=== PATIENT | male | born 1960 | race American Indian/Alaskan Native ===

== ENCOUNTER 2016-10-23 19:52 | Emergency (ER) | payer OTHER ==
--- NOTE | 2016-10-24 00:44 | Emergency Department Report ---
HPI - General Chief Complaint: Back Pain/Injury Time Seen by Provider: 10/24/16 00:24 - HPI HPI: 56-year-old male presents today complaining of left-sided neck pain 2 months. Patient also complaining of neck popping with range of motion. The patient states that the pain is worse in the morning. Describes his pain as 6 out of 10 constant ache. Denies history of similar symptoms. Denies numbness, weakness, paresthesias. Denies fever, chills, nausea, vomiting, chest pain, shortness of breath, abdominal pain. Denies trying any medication for symptomatic relief. ED Past Medical Hx - Past Medical History Previous Medical History?: No - Surgical History Past Surgical History?: No - Social History Smoking Status: Current Every Day Smoker Substance Use Type: Alcohol - Medications Home Medications: Home Medications Medication Instructions Recorded Confirmed Last Taken Type Cyclobenzaprine [Flexeril] 10 mg PO TID PRN #20 tablet 10/24/16 Unknown Rx Naproxen [Naprosyn] 500 mg PO BID #30 tablet 10/24/16 Unknown Rx ED Review of Systems ROS: Stated complaint: PAIN LF SIDE OF NECK/BACK Other details as noted in HPI Constitutional: denies: chills, fever, malaise Eyes: denies: eye pain ENT: denies: ear pain, throat pain, congestion Respiratory: denies: cough, shortness of breath, wheezing Cardiovascular: denies: chest pain, palpitations Endocrine: no symptoms reported Gastrointestinal: denies: abdominal pain, nausea, vomiting Musculoskeletal: back pain Neurological: denies: headache, weakness, numbness, paresthesias Physical Exam - Physical Exam Vital Signs: Vital Signs 10/23/16 20:48 Temperature 97.7 F Pulse Rate 71 Respiratory 20 Rate Blood Pressure 120/76 O2 Sat by Pulse 100 Oximetry Physical Exam: GENERAL: The patient is well-developed and well-nourished. Patient is in NAD. HEAD: Normocephalic. Atraumatic. NECK: Full range of motion. No midline or paraspinal tenderness to palpation. BACK: Full ROM. No midline or paraspinal tenderness to palpation. Tenderness to palpation over left trapezius muscle group. No tenderness to palpation sciatic notch bilaterally. Negative straight leg raise bilaterally. CHEST/LUNGS: Clear to auscultation throughout. HEART/CARDIOVASCULAR: Regular rate and rhythm. No murmurs, rubs or gallops. ABDOMEN: Abdomen is soft, nontender. Bowel sounds normoactive. No guarding or rebound tenderness. EXTREMITIES: Full range of motion. Peripheral pulses intact. Capillary refill less than 2 seconds. NEURO: Alert and oriented x 3. Normal gait. Symmetrical strength and sensation. GCS score of 15. ED Course Vital Signs 10/23/16 20:48 Temperature 97.7 F Pulse Rate 71 Respiratory 20 Rate Blood Pressure 120/76 O2 Sat by Pulse 100 Oximetry ED Medical Decision Making - Lab Data Vital Signs 10/23/16 20:48 Temperature 97.7 F Pulse Rate 71 Respiratory 20 Rate Blood Pressure 120/76 O2 Sat by Pulse 100 Oximetry - Medical Decision Making 56-year-old male presents today with left-sided neck pain 2 months. Patient is in no acute distress at this time. He will be discharged home and is encouraged to follow up with a primary care provider. He will be sent home on Flexeril and naproxen and is encouraged to return to the emergency room for any worsening symptoms. Critical care attestation.: If time is entered above; I have spent that time in minutes in the direct care of this critically ill patient, excluding procedure time. ED Disposition Clinical Impression: Upper back strain Qualifiers: Encounter type: initial encounter Qualified Code(s): S29.012A - Strain of muscle and tendon of back wall of thorax, initial encounter Disposition: DISCHARGED TO HOME OR SELFCARE Is pt being admited?: No Does the pt Need Aspirin: No Condition: Stable Instructions: Muscle Strain (ED) Additional Instructions: Follow-up with primary care provider. Return to the emergency department if symptoms worsen. Prescriptions: Cyclobenzaprine [Flexeril] 10 mg PO TID PRN #20 tablet PRN Reason: Muscle Spasm Naproxen [Naprosyn] 500 mg PO BID #30 tablet Referrals: PRIMARY CARE, [Primary Care Provider] - 3-5 Days AUGUST GOEL MD [Staff Physician] - 3-5 Days Forms: Work/School Release Form(ED) Time of Disposition: 00:39
[2016-10-24 00:52] VITALS: BP 106/71
== END 2016-10-24 00:55 | disposition home or self-care (01) ==
LOC: ED 19:52
DX: S29.012A Strain of muscle and tendon of back wall of thorax, initial encounter (principal); F17.200 Nicotine dependence, unspecified, uncomplicated; X58.XXXA Exposure to other specified factors, initial encounter; Y93.89 Activity, other specified; Y99.8 Other external cause status; Y92.89 Other specified places as the place of occurrence of the external cause
CPT/HCPCS: 99282

== ENCOUNTER 2017-02-22 19:35 | Emergency (ER) | payer SELFPAY ==
[2017-02-22] MEDS ORDERED: MOTRIN ONE (20:09)
[2017-02-22] MEDS ORDERED: MOTRIN PO ONE (20:11)
[2017-02-22] MEDS ORDERED: NORCO 7.5/325 PO ONE (23:01)
[2017-02-22] MEDS ORDERED: DECADRON IM ONE (23:02)
--- NOTE | 2017-02-22 23:05 | Emergency Department Report ---
Upper Extremity - HPI Chief Complaint: Extremity Injury, Upper Stated Complaint: LT AND RT HAND SWELLING/PAINFUL Upper Extremity: Right Hand Occurred When: 3 Days Mechanism: Other (hx of gout) Severity: mild Symptoms: Yes Pain with Movement, Yes Limited Range of Movement, Yes Numbness, Yes Swelling, No Deformity, No Weakness, No Bruising/Ecchymosis, No Laceration or Abrasion Other History: 56 year old male presents to ED with right hand swelling x2-3 days. patient states he has history of gout but was never prescribed medication or seen by PCP. patient states he drinks 1-2 beers daily. patient is stable, neurologically intact and in no acute distress. ED Review of Systems ROS: Stated complaint: LT AND RT HAND SWELLING/PAINFUL Other details as noted in HPI Constitutional: denies: chills, fever Eyes: denies: eye pain, eye discharge, vision change ENT: denies: ear pain, throat pain Respiratory: denies: cough, shortness of breath, wheezing Cardiovascular: denies: chest pain, palpitations Endocrine: no symptoms reported Gastrointestinal: denies: abdominal pain, nausea, diarrhea Genitourinary: denies: urgency, dysuria Musculoskeletal: joint swelling (right hand), arthralgia. denies: back pain Skin: denies: rash, lesions Neurological: denies: headache, weakness, paresthesias Psychiatric: denies: anxiety, depression Hematological/Lymphatic: denies: easy bleeding, easy bruising ED Past Medical Hx - Past Medical History Previous Medical History?: No - Social History Smoking Status: Current Every Day Smoker - Medications Home Medications: Home Medications Medication Instructions Recorded Confirmed Last Taken Type Cyclobenzaprine [Flexeril] 10 mg PO TID PRN #20 tablet 10/24/16 Unknown Rx Naproxen [Naprosyn] 500 mg PO BID #30 tablet 10/24/16 Unknown Rx Indomethacin 50 mg PO BID #10 capsule 02/23/17 Unknown Rx Upper Extremity Exam - Exam General: Vital signs noted. No distress. Alert and acting appropriately. Head and Torso: No HEENT Abnormality, No Neck Tenderness, No Chest/Lungs Abnormality, No Abdominal Tenderness, No Back Tenderness Shoulder Exam: Yes Normal Range of Motion in Shoulder, No Shoulder Tenderness, No Clavicle Tenderness, No Shoulder Deformity, No AC Joint Tenderness Arm Exam: No Arm/Humerus Tenderness, No Arm Deformity Elbow: Yes Normal Range of Motion in Elbow, No Elbow Tenderness, No Elbow Deformity Forearm: No Forearm Tenderness, No Forearm Deformity, No Pain with Pronation, No Pain with Supination Wrist: Yes Normal ROM in Wrist, No Wrist Tenderness, No Wrist Deformity, No Snuffbox Tenderness, No Pain with Axial Thumb Compression Hand: Yes Hand Tenderness, Yes Normal ROM in Digit(s), No Hand Deformity, No Digit Tenderness, No Digit(s) Deformity, No Tendon Dysfunction CMS Exam: Yes Normal Distal Pulses, Yes Normal Capillary Refill, Yes Normal Distal Sensation, No Broken Skin ED Course Vital Signs 02/22/17 02/22/17 20:03 20:12 Temperature 98.4 F Pulse Rate 76 Respiratory 18 20 Rate Blood Pressure 106/72 O2 Sat by Pulse 97 Oximetry ED Medical Decision Making - Radiology Data Radiology results: report reviewed XR right hand Normal examination - Medical Decision Making 56 year old male presents to ED with right hand swelling x2-3 days. patient states he has had previous gout attacks in feet, ankles and now his hand. patient admits he drinks 1-2 beer a day. patient states he has never been prescribed medication for gout. patient will be given referral to PCP and agrees and understands to follow up within 2-3 days. Critical care attestation.: If time is entered above; I have spent that time in minutes in the direct care of this critically ill patient, excluding procedure time. ED Disposition Clinical Impression: Gout attack Qualifiers: Gout site: hand Gout etiology: unspecified cause Laterality: right Qualified Code(s): M10.9 - Gout, unspecified Disposition: - TO HOME OR SELFCARE Is pt being admited?: No Does the pt Need Aspirin: No Condition: Stable Instructions: Acute Gouty Arthritis (ED) Prescriptions: Indomethacin 50 mg PO BID #10 capsule Referrals: JAKI STEWART JR, MD [Staff Physician] - 2-3 Days RADHA ESCOTO MD [Staff Physician] - 2-3 Days GER DOZIER MD [Staff Physician] - 2-3 Days
--- NOTE | 2017-02-22 23:39 | XRay Report ---
FINAL REPORT PROCEDURE: XR HAND 3+V RT TECHNIQUE: RIGHT hand radiographs, AP, lateral, and oblique views. CPT [id number] HISTORY: right hand swelling COMPARISON: No prior studies are available for comparison. FINDINGS: Fracture (s) and/or Dislocation(s): None . Alignment: Normal . Joint space(s): Normal . Soft tissues: Normal . Bone mineralization: Normal . Foreign bodies: None . IMPRESSION: Normal Examination .
[2017-02-23 00:35] VITALS: BP 149/82
== END 2017-02-23 00:45 | disposition home or self-care (01) ==
LOC: ED 19:35
DX: M10.9 Gout, unspecified (principal); F17.210 Nicotine dependence, cigarettes, uncomplicated
CPT/HCPCS: 73130; 96372; 99283; J1100

== ENCOUNTER 2017-03-27 19:09 | Emergency (ER) | payer SELFPAY ==
--- NOTE | 2017-03-27 22:39 | Emergency Department Report ---
Upper Extremity - [facility] Chief Complaint: Extremity Injury, Upper Stated Complaint: PAIN IN RT FOOT AND RT HAND Time Seen by Provider: 03/27/17 22:39 ED Review of Systems ROS: Stated complaint: PAIN IN RT FOOT AND RT HAND Other details as noted in HPI ED Past Medical Hx - Past Medical History Additional medical history: gout - Surgical History Past Surgical History?: Yes Additional Surgical History: hernia repair - Social History Smoking Status: Current Every Day Smoker Substance Use Type: Alcohol - Medications Home Medications: Home Medications Medication Instructions Recorded Confirmed Last Taken Type Cyclobenzaprine [Flexeril] 10 mg PO TID PRN #20 tablet 10/24/16 Unknown Rx Naproxen [Naprosyn] 500 mg PO BID #30 tablet 10/24/16 Unknown Rx Indomethacin 50 mg PO BID #10 capsule 02/23/17 Unknown Rx Upper Extremity Exam - Exam General: Vital signs noted. No distress. Alert and acting appropriately. ED Course Vital Signs 03/27/17 19:20 Temperature 98.5 F Pulse Rate 79 Respiratory 18 Rate Blood Pressure 102/61 O2 Sat by Pulse 97 Oximetry Critical care attestation.: If time is entered above; I have spent that time in minutes in the direct care of this critically ill patient, excluding procedure time. ED Disposition Condition: Stable Referrals: PRIMARY CARE, [Primary Care Provider] - 3-5 Days
--- NOTE | 2017-03-27 22:52 | Emergency Department Report ---
ED Extremity Problem HPI - General Chief complaint: Extremity Injury, Upper Stated complaint: PAIN IN RT FOOT AND RT HAND Time Seen by Provider: 03/27/17 22:39 Source: patient, family Mode of arrival: Ambulatory Limitations: No Limitations - History of Present Illness Initial comments: Patient reports that he is right hand and right foot pain for 1 week. He states he has gout and has been drinking beer and eating meat and he thinks this is why he has a flare up. He has a history of gout. Pain is 8 out of 10 and achy. Denies any injury. Denies any numbness certainly into her extremities. Denies any limited range of motion to her extremities. Patient has had similar flareup of gout in the past. Denies any fever or chills. MD Complaint: extremity pain, joint swelling, joint paint Onset/Timin -: week(s) Location: right, upper extremity, lower extremity (right hand and foot) History of Same: Yes -: No myalgia, Yes arthralgia, No fever, No associated dyspnea, No associated chest pain Radiation: none Severity scale (0 -10): 8 Quality: aching, constant Consistency: constant Improves with: nothing Worsens with: palpation Associated Symptoms: arthralgias. denies: chest pain, shortness of breath, fever, myalgias, rash - Related Data Previous Rx's Medication Instructions Recorded Last Taken Type Cyclobenzaprine [Flexeril] 10 mg PO TID PRN #20 tablet 10/24/16 Unknown Rx Indomethacin 50 mg PO BID #10 capsule 02/23/17 Unknown Rx Acetaminophen/Codeine [Tylenol 1 tab PO Q6H PRN #12 tab 03/28/17 Unknown Rx /Codeine # 3 tab] Naproxen [Naprosyn TAB] 500 mg PO BID PRN #14 tablet 03/28/17 Unknown Rx methylPREDNISolone [Medrol] 4 mg PO QAM #1 tab.ds.pk 03/28/17 Unknown Rx Allergies Allergy/AdvReac Type Severity Reaction Status Date / Time No Known Allergies Allergy Verified 03/27/17 19:20 ED Review of Systems ROS: Stated complaint: PAIN IN RT FOOT AND RT HAND Other details as noted in HPI Comment: All other systems reviewed and negative Constitutional: no symptoms reported Respiratory: no symptoms reported Cardiovascular: denies: chest pain, palpitations, dyspnea on exertion, orthopnea , edema, syncope Gastrointestinal: denies: abdominal pain, nausea, vomiting Musculoskeletal: joint swelling, arthralgia. denies: back pain, myalgia Skin: denies: rash Neurological: denies: headache, weakness, numbness, paresthesias, confusion, abnormal gait, vertigo ED Past Medical Hx - Past Medical History Previous Medical History?: Yes Additional medical history: gout - Surgical History Past Surgical History?: Yes Additional Surgical History: hernia repair - Family History Family history: no significant - Social History Smoking Status: Current Every Day Smoker Substance Use Type: Alcohol Other Social History: Patient is single - Medications Home Medications: Home Medications Medication Instructions Recorded Confirmed Last Taken Type Cyclobenzaprine [Flexeril] 10 mg PO TID PRN #20 tablet 10/24/16 Unknown Rx Indomethacin 50 mg PO BID #10 capsule 02/23/17 Unknown Rx Acetaminophen/Codeine [Tylenol 1 tab PO Q6H PRN #12 tab 03/28/17 Unknown Rx /Codeine # 3 tab] Naproxen [Naprosyn TAB] 500 mg PO BID PRN #14 tablet 03/28/17 Unknown Rx methylPREDNISolone [Medrol] 4 mg PO QAM #1 tab.ds.pk 03/28/17 Unknown Rx ED Physical Exam - General Limitations: No Limitations General appearance: alert, in no apparent distress - Head Head exam: Present: atraumatic, normocephalic, normal inspection - Eye Eye exam: Present: normal appearance, PERRL, EOMI. Absent: scleral icterus, conjunctival injection, periorbital swelling, periorbital tenderness Pupils: Present: normal accommodation - ENT ENT exam: Present: normal exam, normal orophraynx, mucous membranes moist, TM's normal bilaterally, normal external ear exam - Neck Neck exam: Present: normal inspection, full ROM. Absent: tenderness, meningismus, lymphadenopathy - Respiratory Respiratory exam: Present: normal lung sounds bilaterally. Absent: respiratory distress, chest wall tenderness - Cardiovascular Cardiovascular Exam: Present: regular rate, normal rhythm, normal heart sounds. Absent: systolic murmur, diastolic murmur - GI/Abdominal GI/Abdominal exam: Present: soft, normal bowel sounds. Absent: distended, tenderness, guarding, rebound, rigid - Extremities Exam Extremities exam: Present: normal inspection, full ROM (ratio with full range of motion to lower extremity but painful with dorsiflexion and plantar flexion to right foot and flexion and extension to her right wrist area.), tenderness ( right hand and right foot), normal capillary refill, joint swelling (swelling noted to right hand. Swelling noted to right foot.), other (patient would good color, movement, sensation. Right hand and right foot with increase temperature when compared to left hand and left foot. No neurovascular compromise and pulses are 2+. Joint crepitus, effusion or deformity. No abrasion or laceration. No abnormality is nail.). Absent: pedal edema, calf tenderness - Back Exam Back exam: Present: normal inspection, full ROM. Absent: tenderness, CVA tenderness (R), CVA tenderness (L), muscle spasm, paraspinal tenderness, vertebral tenderness, rash noted - Neurological Exam Neurological exam: Present: alert, oriented X3, normal gait, reflexes normal. Absent: motor sensory deficit - Psychiatric Psychiatric exam: Present: normal affect, normal mood - Skin Skin exam: Present: warm, dry, intact, normal color. Absent: rash ED Course Vital Signs 03/27/17 03/28/17 03/28/17 19:20 00:49 00:50 Temperature 98.5 F Pulse Rate 79 Respiratory 18 18 18 Rate Blood Pressure 102/61 O2 Sat by Pulse 97 Oximetry - Reevaluation(s) Reevaluation #1: 03/28/17 01:07 Given Percocet 5/325 2 tablets, Decadron 10 mg IM and Toradol 60 mg IM in the emergency room for gout flareup. Pain is better. 03/28/17 01:07 ED Medical Decision Making - Medical Decision Making ED course: Patient with presentation of gout flareup after eating in red meat and drinking beer. He had similar flares in the past and he was here on 2016 and 02/23/2017 for similar issues. Patient states that he does not have a primary care physician. Patient educated on diagnosis and treatment plan and also foods to avoid that causes gout flareup. He said he knows what sometime he cannot help himself. He was given Percocet 5/325 2 tablets, Toradol 60 mg IM and Decadron 10 mg IM in emergency room for pain. He voiced relief of pain. She discharged home with prescription for Medrol Dosepak, naproxen and Tylenol No. 3 and instructed to follow-up at [facility] for management of chronic gout. Discharge home with his family in stable condition. Critical care attestation.: If time is entered above; I have spent that time in minutes in the direct care of this critically ill patient, excluding procedure time. ED Disposition Clinical Impression: Arthralgia of multiple sites Acute gout Qualifiers: Gout site: multiple sites Gout etiology: unspecified cause Qualified Code(s): M10.9 - Gout, unspecified Disposition: TO HOME OR SELFCARE Is pt being admited?: No Does the pt Need Aspirin: No Condition: Stable Instructions: Acute Gouty Arthritis (ED), Low Purine Diet (ED), Arthralgia (ED) Additional Instructions: Patient given discharge instruction on management of Purine diet. I instructed them to read discharge instruction on low purine Diet. I instructed him that he can take Tylenol No. 3 but he will need to avoid driving or operating heavy machinery as this medication causes drowsiness. Follow-up at [facility] in 3-5 days for follow-up visit without Prescriptions: Acetaminophen/Codeine [Tylenol /Codeine # 3 tab] 1 tab PO Q6H PRN #12 tab PRN Reason: Pain, Moderate (4-6) methylPREDNISolone [Medrol] 4 mg PO QAM #1 tab.ds.pk Naproxen [Naprosyn TAB] 500 mg PO BID PRN #14 tablet PRN Reason: Pain Referrals: [facility] [Outside] - 3-5 Days Forms: Work/School Release Form(ED)
[2017-03-28] MEDS ORDERED: DECADRON IM ONE (00:34)
[2017-03-28] MEDS ORDERED: PERCOCET 5/325 PO ONE (00:34)
[2017-03-28] MEDS ORDERED: TORADOL IM ONE (00:35)
[2017-03-28 01:31] VITALS: BP 142/87
== END 2017-03-28 01:31 | disposition home or self-care (01) ==
LOC: ED 19:09
DX: M10.9 Gout, unspecified (principal); M79.671 Pain in right foot; M79.641 Pain in right hand; F17.210 Nicotine dependence, cigarettes, uncomplicated
CPT/HCPCS: 96372; 99282; J1100; J1885

== ENCOUNTER 2017-12-04 22:15 | Emergency (ER) | payer SELFPAY ==
[2017-12-04 22:27] VITALS: BP 103/64
[2017-12-04] MEDS ORDERED: TYLENOL PO ONE (22:50)
[2017-12-04] MEDS ORDERED: TYLENOL ONE (22:52)
[2017-12-05] MEDS ORDERED: TYLENOL PO ONE (22:50)
== END 2017-12-04 22:45 | disposition left against medical advice (07) ==
LOC: ED 22:15
DX: M79.89 Other specified soft tissue disorders (principal); Z53.21 Procedure and treatment not carried out due to patient leaving prior to being seen by health care provider

== ENCOUNTER 2018-10-28 15:15 | Emergency (ER) | payer OTHER ==
--- NOTE | 2018-10-28 15:42 | Emergency Department Report ---
Blank Doc - Documentation Documentation: this is a 58-year-old male that presents with left inguinal pain area. Stated believes is a hernia. Symptoms are similar to right inguinal hernia. This initial assessment/diagnostic orders/clinical plan/treatment(s) is/are subject to change based on patient's health status, clinical progression and re- assessment by fellow clinical providers in the ED. Further treatment and workup at subsequent clinical providers discretion. Patient/guardians urged not to elope from the ED as their condition may be serious if not clinically assessed and managed. Initial orders include: 1- Patient sent to [facility] for further evaluation and treatment 2- labs
[2018-10-28 16:25] LABS: Basophils % (Auto) 0.7 % (0.0-1.8); Eosinophils # (Auto) 0.1 K/mm3 (0.0-0.4); Eosinophils % (Auto) 2.9 % (0.0-4.3); Hemoglobin 12.7 gm/dl (11.8-15.2); Lymphocytes # (Auto) 2.1 K/mm3 (1.2-5.4); Lymphocytes % (Auto) 47.2 % (13.4-35.0); Mean Corpuscular HGB Conc 33 % (32-34); Mean Corpuscular Volume 97 fl (84-94); Monocytes # (Auto) 0.3 K/mm3 (0.0-0.8); Monocytes % (Auto) 6.9 % (0.0-7.3); Platelet Count 166 K/mm3 (140-440); Red Blood Count 3.92 M/mm3 (3.65-5.03); Red Cell Distribution Width 13.5 % (13.2-15.2)
[2018-10-28 16:37] LABS: BUN/Creatinine Ratio 20; Blood Urea Nitrogen 16 mg/dL (9-20); Calcium 9.1 mg/dL (8.4-10.2); Hemolysis Index 9
--- NOTE | 2018-10-28 20:01 | Emergency Department Report ---
ED Male HPI - General Chief complaint: Urogenital-Male Stated complaint: LFT LEFT GROIN/PAIN Time Seen by Provider: 10/28/18 15:41 Source: patient Mode of arrival: Ambulatory Limitations: No Limitations - History of Present Illness MD Complaint: hernia -: This afternoon Location: left inguinal region Radiation: none Severity: mild Severity scale (0 -10): 2 Quality: aching Consistency: intermittent Worsens with: other (lifting heavy objects) lifting denies other symptoms - Related Data Previous Rx's Medication Instructions Recorded Last Taken Type Cyclobenzaprine [Flexeril] 10 mg PO TID PRN #20 tablet 10/24/16 Unknown Rx Indomethacin 50 mg PO BID #10 capsule 02/23/17 Unknown Rx Acetaminophen/Codeine [Tylenol 1 tab PO Q6H PRN #12 tab 03/28/17 Unknown Rx /Codeine # 3 tab] Naproxen [Naprosyn TAB] 500 mg PO BID PRN #14 tablet 03/28/17 Unknown Rx methylPREDNISolone [Medrol] 4 mg PO QAM #1 tab.ds.pk 03/28/17 Unknown Rx Allergies Allergy/AdvReac Type Severity Reaction Status Date / Time No Known Allergies Allergy Verified 03/27/17 19:20 ED Review of Systems ROS: Stated complaint: LFT LEFT GROIN/PAIN Other details as noted in HPI Comment: All other systems reviewed and negative ED Past Medical Hx - Past Medical History Previous Medical History?: Yes Additional medical history: gout - Surgical History Past Surgical History?: Yes Additional Surgical History: hernia repair - Social History Smoking Status: Current Every Day Smoker Substance Use Type: Alcohol - Medications Home Medications: Home Medications Medication Instructions Recorded Confirmed Last Taken Type Cyclobenzaprine [Flexeril] 10 mg PO TID PRN #20 tablet 10/24/16 Unknown Rx Indomethacin 50 mg PO BID #10 capsule 02/23/17 Unknown Rx Acetaminophen/Codeine [Tylenol 1 tab PO Q6H PRN #12 tab 03/28/17 Unknown Rx /Codeine # 3 tab] Naproxen [Naprosyn TAB] 500 mg PO BID PRN #14 tablet 03/28/17 Unknown Rx methylPREDNISolone [Medrol] 4 mg PO QAM #1 tab.ds.pk 03/28/17 Unknown Rx ED Physical Exam - General Limitations: No Limitations General appearance: alert, in no apparent distress - Head Head exam: Present: atraumatic, normocephalic - Eye Eye exam: Present: normal appearance, PERRL - ENT ENT exam: Present: mucous membranes moist - Neck Neck exam: Present: normal inspection - Respiratory Respiratory exam: Present: normal lung sounds bilaterally. Absent: respiratory distress - Cardiovascular Cardiovascular Exam: Present: regular rate, normal rhythm. Absent: systolic murmur, diastolic murmur, rubs, gallop - GI/Abdominal GI/Abdominal exam: Present: soft, normal bowel sounds - exam: Present: other (left side inguinal mass). Absent: testicular tenderness - Extremities Exam Extremities exam: Present: normal inspection, full ROM - Back Exam Back exam: Present: normal inspection - Neurological Exam Neurological exam: Present: alert, oriented X3, normal gait - Psychiatric Psychiatric exam: Present: normal affect, normal mood - Skin Skin exam: Present: warm, dry, intact, normal color. Absent: rash ED Course Vital Signs 10/28/18 15:41 Temperature 98.3 F Pulse Rate 63 Respiratory 20 Rate Blood Pressure 102/59 O2 Sat by Pulse 100 Oximetry ED Medical Decision Making - Lab Data Result diagrams: 10/28/18 16:00 10/28/18 16:00 Critical care attestation.: If time is entered above; I have spent that time in minutes in the direct care of this critically ill patient, excluding procedure time. ED Disposition Clinical Impression: Left inguinal hernia Disposition: [id number]-01 TO HOME OR SELFCARE Is pt being admited?: No Does the pt Need Aspirin: No Condition: Stable Instructions: Inguinal Hernia (ED) Additional Instructions: Take Tylenol or Motrin as needed for pain management. It's very important for you to follow up with general surgery I have listed inflammation below for your convenience. [facility] [Primary Care Provider[facility] - 3-5 Days RADHA CROWELL MD [Staff Physician] - 3-5 Days
[2018-10-28 20:19] VITALS: BP 125/79
== END 2018-10-28 20:17 | disposition home or self-care (01) ==
LOC: ED 15:15
DX: K40.90 Unilateral inguinal hernia, without obstruction or gangrene, not specified as recurrent (principal); F17.200 Nicotine dependence, unspecified, uncomplicated
CPT/HCPCS: 36415; 80048; 85025

== ENCOUNTER 2020-03-12 16:36 | Inpatient (IN) | payer SELFPAY ==
[2020-03-12 17:06] LABS: Bilirubin,Urine NEG (Negative); Blood,Urine MOD (Negative); Color,Urine Yellow (Yellow); Hyaline Casts,Urine 1 /LPF; Mucus,Urine 1+ /HPF
[2020-03-12 18:15] LABS: Basophils % (Auto) 0.3 % (0.0-1.8); Eosinophils % (Auto) 0.1 % (0.0-4.3); Hematocrit 39.4 % (35.5-45.6); Hemoglobin 12.9 gm/dl (11.8-15.2); Lymphocytes # (Auto) 0.5 K/mm3 (1.2-5.4); Lymphocytes % (Auto) 10.1 % (13.4-35.0); Mean Corpuscular HGB Conc 33 % (32-34); Mean Corpuscular Volume 104 fl (84-94); Monocytes # (Auto) 0.5 K/mm3 (0.0-0.8); Monocytes % (Auto) 9.1 % (0.0-7.3); Platelet Count 116 K/mm3 (140-440); Red Blood Count 3.79 M/mm3 (3.65-5.03); Red Cell Distribution Width 13.6 % (13.2-15.2)
[2020-03-12 18:17] LABS: Alanine Aminotransferase 70 units/L (7-56); Albumin 5.3 g/dL (3.9-5); BUN/Creatinine Ratio 11; Blood Urea Nitrogen 13 mg/dL (9-20); Calcium 10.4 mg/dL (8.4-10.2); Hemolysis Index 1
[2020-03-12] MEDS ORDERED: MORPHINE 2 MG/1 ML INJ IV ONE (20:49)
[2020-03-12] MEDS ORDERED: ONDANSETRON 4 MG/2 ML INJ IV ONE (20:49)
--- NOTE | 2020-03-12 21:14 | Emergency Department Report ---
ED N/V/D HPI - General Chief complaint: Abdominal Pain Stated complaint: COUGH,STOMACH PAIN Time Seen by Provider: 03/12/20 20:11 Source: patient Mode of arrival: Ambulatory Limitations: No Limitations - History of Present Illness Initial comments: 59-year-old male, no known past medical history, presents to ED with complaint of vomiting and diarrhea x4 days. States he is unable to keep anything down. Patient reports associated upper abdominal pain and cough. He denies any fever or chills. He denies any sick contacts or known exposure to anyone who tested positive for COVID-19. Patient reports he only drinks 2 beers daily. Also reports tobacco use as well. Patient reports unintentional weight loss of approximately 40 pounds over the last couple of months. MD complaint: nausea, vomiting, diarrhea, abdominal pain -: days(s) (4) Description of Vomiting: food contents Description of Diarrhea: water Associated Abdominal Pain: Yes Location: epigastric Radiation: none Severity: moderate Quality: aching Consistency: constant Improves with: none Worsens with: eating Associated Symptoms: cough, loss of appetite, nausea/vomiting. denies: fever/chills, headaches, shortness of breath - Related Data Previous Rx's Medication Instructions Recorded Last Taken Type Cyclobenzaprine [Flexeril] 10 mg PO TID PRN #20 tablet 10/24/16 Unknown Rx Indomethacin 50 mg PO BID #10 capsule 02/23/17 Unknown Rx Acetaminophen/Codeine [Tylenol 1 tab PO Q6H PRN #12 tab 03/28/17 Unknown Rx /Codeine # 3 tab] Naproxen [Naprosyn TAB] 500 mg PO BID PRN #14 tablet 03/28/17 Unknown Rx methylPREDNISolone [Medrol] 4 mg PO QAM #1 tab.ds.pk 03/28/17 Unknown Rx Allergies Allergy/AdvReac Type Severity Reaction Status Date / Time No Known Allergies Allergy Verified 03/27/17 19:20 ED Review of Systems ROS: Stated complaint: COUGH,STOMACH PAIN Other details as noted in HPI Comment: All other systems reviewed and negative Constitutional: denies: chills, fever Gastrointestinal: abdominal pain, nausea, vomiting, diarrhea ED Past Medical Hx - Past Medical History Previous Medical History?: Yes Additional medical history: gout. hernia - Surgical History Past Surgical History?: Yes Additional Surgical History: hernia repair - Social History Smoking Status: Current Every Day Smoker Substance Use Type: None - Medications Home Medications: Home Medications Medication Instructions Recorded Confirmed Last Taken Type Cyclobenzaprine [Flexeril] 10 mg PO TID PRN #20 tablet 10/24/16 Unknown Rx Indomethacin 50 mg PO BID #10 capsule 02/23/17 Unknown Rx Acetaminophen/Codeine [Tylenol 1 tab PO Q6H PRN #12 tab 03/28/17 Unknown Rx /Codeine # 3 tab] Naproxen [Naprosyn TAB] 500 mg PO BID PRN #14 tablet 03/28/17 Unknown Rx methylPREDNISolone [Medrol] 4 mg PO QAM #1 tab.ds.pk 03/28/17 Unknown Rx ED Physical Exam - General Limitations: No Limitations General appearance: alert, in no apparent distress - Head Head exam: Present: atraumatic, normocephalic - Eye Eye exam: Present: normal appearance, EOMI - ENT ENT exam: Present: mucous membranes moist - Neck Neck exam: Present: normal inspection - Respiratory Respiratory exam: Present: normal lung sounds bilaterally. Absent: respiratory distress - Cardiovascular Cardiovascular Exam: Present: regular rate, normal rhythm - GI/Abdominal GI/Abdominal exam: Present: soft, tenderness (epigastric, RUQ, periumbilical). Absent: distended - Extremities Exam Extremities exam: Present: normal inspection - Neurological Exam Neurological exam: Present: alert, oriented X3 - Psychiatric Psychiatric exam: Present: normal affect, normal mood - Skin Skin exam: Present: warm, dry, intact, normal color ED Course Vital Signs 03/12/20 03/12/20 03/12/20 16:41 20:06 21:19 Temperature 97.7 F 98 F Pulse Rate 94 H 86 84 Respiratory 18 20 18 Rate Blood Pressure 169/99 Blood Pressure 163/84 144/87 [Left] O2 Sat by Pulse 100 100 99 Oximetry 03/12/20 03/12/20 21:20 23:12 Temperature Pulse Rate 80 Respiratory 17 Rate Blood Pressure Blood Pressure 156/87 [Left] O2 Sat by Pulse 98 100 Oximetry ED Medical Decision Making - Lab Data Result diagrams: 03/12/20 17:30 03/12/20 17:30 - Radiology Data Radiology results: report reviewed, image reviewed - Medical Decision Making 59-year-old male with acute pancreatitis. Lipase is 994, with some mild elevation in AST and ALT. Total bilirubin is normal. WBCs are normal, patient is afebrile. CT scan shows mild peripancreatic inflammation and numerous small hypodense hepatic lesions. Patient unable to tolerate p.o. challenge here in the ED. He reports pain has improved following IV morphine. Patient has received 1 L bolus of normal saline. He will be admitted to the hospitalist, Dr. Mcmahan, for further management. - Differential Diagnosis Pancreatitis, gallstones, bowel obstruction, gastroenteritis Critical care attestation.: If time is entered above; I have spent that time in minutes in the direct care of this critically ill patient, excluding procedure time. ED Disposition Clinical Impression: Acute pancreatitis Disposition: DC-09 OP ADMIT IP TO THIS HOSP Is pt being admited?: Yes Condition: Stable Time of Disposition: 22:44
--- NOTE | 2020-03-12 21:16 | XRay Report ---
CHEST 1 VIEW 03/12/2020 8:01 PM INDICATION / CLINICAL INFORMATION: cough. Decreased appetite with nausea and vomiting. COMPARISON: None available. FINDINGS: SUPPORT DEVICES: None. HEART / MEDIASTINUM: No significant abnormality. LUNGS / PLEURA: No significant pulmonary or pleural abnormality. No pneumothorax. ADDITIONAL FINDINGS: No significant additional findings. IMPRESSION: 1. No acute findings. Signer Name: Adriana Alejandra MD Signed: 03/12/2020 9:12 PM Workstation Name: [id number]
--- NOTE | 2020-03-12 21:38 | Cat Scan Report ---
CT ABDOMEN AND PELVIS WITH CONTRAST INDICATION / CLINICAL INFORMATION: pain, vomiting. TECHNIQUE: Axial CT images were obtained through the abdomen and pelvis after 100 mL Omnipaque [address] scans at this location are performed using CT dose reduction for ALARA by means of automated exposure control. COMPARISON: None available. FINDINGS: LOWER CHEST: No significant abnormality. LIVER: Liver is enlarged and diffusely hypodense representing fatty infiltration. There are multiple small subcentimeter hypodense lesions throughout the liver which are too small to characterize. Lesio ns do not have typical appearance of simple cysts. GALLBLADDER: No significant abnormality. BILE DUCTS: No significant abnormality. PANCREAS: Mild peripancreatic inflammation extending into the left and right anterior pararenal space s. No peripancreatic fluid collection. SPLEEN: Small, benign, flash fill cavernous hemangioma. ADRENALS: No significant abnormality. RIGHT KIDNEY / URETER: No significant abnormality. LEFT KIDNEY / URETER: No significant abnormality. STOMACH / SMALL BOWEL: Mild thickening and edema of the duodenum adjacent to the head of the pancreas . No small bowel abnormality. COLON: Diverticulosis without acute inflammation. APPENDIX: No significant abnormality. PERITONEUM: Trace free fluid in the pelvis. No free air. No fluid collection. LYMPH NODES: No significant adenopathy. AORTA / ARTERIES: No significant abnormality. IVC / VEINS: No significant abnormality. URINARY BLADDER: No significant abnormality. REPRODUCTIVE ORGANS: No significant abnormality. ADDITIONAL FINDINGS: Moderate-sized left inguinal hernia containing a nonobstructed loop of sigmoid c olon. SKELETAL SYSTEM: No significant abnormality. IMPRESSION: 1. Mild peripancreatic inflammation which can be seen in acute pancreatitis. Clinical and laboratory correlation is recommended. 2. Adjacent duodenal edema and thickening are presenting either duodenitis or secondary inflammation from pancreatitis. 3. Hepatomegaly with hepatic steatosis. 4. Numerous small hypodense hepatic lesions that do not have definitive cystic appearance. Ultrasound liver may be helpful to confirm cystic versus solid nature of these lesions. 5. Moderate-sized left inguinal hernia containing nonobstructed loop of sigmoid colon. Signer Name: Adriana Alejandra MD Signed: 03/12/2020 9:34 PM Workstation Name: [id number]
[2020-03-12] MEDS ORDERED: SODIUM CHLORIDE 0.9% 1000 ML 1,000 ML IV ONE (21:56)
[2020-03-12] MEDS ORDERED: ACETAMINOPHEN 325 MG TAB PO PRN (23:32)
[2020-03-12] MEDS ORDERED: ONDANSETRON 4 MG/2 ML INJ IV PRN (23:32)
--- NOTE | 2020-03-12 23:40 | History and Physical Report ---
History of Present Illness Date of examination: 03/12/20 Date of admission: 03/12/20 22:56 Chief complaint: Nausea Vomiting Abdominal Pain History of present illness: 59-year-old male with known history of gout presenting to the emergency room today complaining of nausea vomiting and diarrhea for about 4 days. He has also been having some associated upper abdominal pain. He denies any fever or chills, no chest pain or shortness of breath, no headache or dizziness. He denies any travel and no sick contacts. He denies any contact with anyone with COVID-19. Patient admits that he drinks about 3 beers on a daily basis. He reports unintentional weight loss over the past few months. Work-up in the emergency room today reveals elevated lipase levels, CT of the abdomen and pelvis reveals acute pancreatitis. He has been started on IV fluid, Zofran and analgesic medication. Past History Past Medical History: other (Gout) Past Surgical History: hernia repair, Other (Skin Graft) Social history: smoking (Current daily Smoker), alcohol abuse (Drinks about 3 beers daily) Family history: no significant family history Medications and Allergies Allergies Allergy/AdvReac Type Severity Reaction Status Date / Time No Known Allergies Allergy Verified 03/27/17 19:20 Home Medications Medication Instructions Recorded Confirmed Last Taken Type Cyclobenzaprine [Flexeril] 10 mg PO TID PRN #20 tablet 10/24/16 Unknown Rx Indomethacin 50 mg PO BID #10 capsule 02/23/17 Unknown Rx Acetaminophen/Codeine [Tylenol 1 tab PO Q6H PRN #12 tab 03/28/17 Unknown Rx /Codeine # 3 tab] Naproxen [Naprosyn TAB] 500 mg PO BID PRN #14 tablet 03/28/17 Unknown Rx methylPREDNISolone [Medrol] 4 mg PO QAM #1 tab.ds.pk 03/28/17 Unknown Rx Active Meds: Active Medications Acetaminophen (Tylenol) 650 mg PO Q4H PRN PRN Reason: Pain MILD(1-3)/Fever >100.5/PATTERSON Enoxaparin Sodium (Enoxaparin) 40 mg SUB-Q QDAY@2200 JADEN Sodium Chloride (Nacl 0.9% 1000 Ml) 1,000 mls @ 150 mls/hr IV DIRECT JADEN Morphine Sulfate (Morphine) 2 mg IV Q4H PRN PRN Reason: Pain, Moderate (4-6) Ondansetron HCl (Zofran) 4 mg IV Q8H PRN PRN Reason: Nausea And Vomiting Sodium Chloride (Sodium Chloride Flush Syringe 10 Ml) 10 ml IV BID JADEN Sodium Chloride (Sodium Chloride Flush Syringe 10 Ml) 10 ml IV PRN PRN PRN Reason: LINE FLUSH Review of Systems Constitutional: no fever, no chills Ears, nose, mouth and throat: no nasal congestion, no sore throat Cardiovascular: no chest pain, no palpitations Respiratory: no cough, no shortness of breath Gastrointestinal: abdominal pain, nausea, vomiting, diarrhea Genitourinary Male: no dysuria, no hematuria, no flank pain Musculoskeletal: no neck pain, no low back pain Integumentary: no rash, no pruritis Neurological: no headaches, no confusion Psychiatric: no anxiety, no depression Exam - Constitutional Vitals: Temp Pulse Resp BP Pulse Ox 98 F 80 17 156/87 100 03/12/20 20:06 03/12/20 23:12 03/12/20 23:12 03/12/20 23:12 03/12/20 23:12 General appearance: Present: no acute distress, well-nourished - EENT Eyes: Present: PERRL, EOM intact. Absent: scleral icterus ENT: hearing intact, clear oral mucosa, dentition normal - Neck Neck: Present: supple, normal ROM - Respiratory Respiratory effort: normal Respiratory: bilateral: CTA - Cardiovascular Rhythm: regular Heart Sounds: Present: S1 & S2. Absent: gallop, systolic murmur, diastolic murmur, rub - Extremities Extremities: no ischemia, pulses intact, pulses symmetrical, No edema, Full ROM Peripheral Pulses: within normal limits - Abdominal General gastrointestinal: Present: soft, tender, non-distended, normal bowel sounds Localized gastrointestinal: tender: epigastric periumbilical - Integumentary Integumentary: Present: clear, warm, dry. Absent: rash - Musculoskeletal Musculoskeletal: strength equal bilaterally - Psychiatric Psychiatric: appropriate mood/affect, intact judgment & insight, memory intact, cooperative - Neurologic Neurologic: CNII-XII intact, no focal deficits, moves all extremities Results - Labs CBC & Chem 7: 03/13/20 04:48 03/13/20 04:48 Labs: Abnormal lab results 03/12/20 03/12/20 03/12/20 Range/Units 17:30 17:30 17:30 MCV 104 H (84-94) fl MCH 34 H (28-32) pg Plt Count 116 L (140-440) K/mm3 Lymph % (Auto) 10.1 L (13.4-35.0) % [place] % (Auto) 9.1 H (0.0-7.3) % Lymph # 0.5 L (1.2-5.4) K/mm3 Seg Neutrophils % 80.4 H (40.0-70.0) % Sodium 133 L (137-145) mmol/L Chloride 84.7 L (98-107) mmol/L Carbon Dioxide 14 L (22-30) mmol/L Glucose 139 H (75-100) mg/dL Calcium 10.4 H (8.4-10.2) mg/dL AST 98 H (5-40) units/L ALT 70 H (7-56) units/L Total Protein 8.7 H (6.3-8.2) g/dL Albumin 5.3 H (3.9-5) g/dL Lipase 994 H (13-60) units/L Assessment and Plan - Patient Problems (1) Acute pancreatitis Current Visit: Yes Status: Acute Plan to address problem: Patient placed on IV fluid, analgesic medication. He is meanwhile made n.p.o. Will monitor lipase levels (2) Alcohol abuse Current Visit: Yes Status: Acute Plan to address problem: Patient has been counseled on quitting alcohol abuse. We will monitor for alcohol withdrawal. (3) DVT prophylaxis Current Visit: Yes Status: Acute Plan to address problem: Patient placed on subcutaneous Lovenox (4) Full code status Current Visit: Yes Status: Acute
[2020-03-13] MEDS: SODIUM CHLORIDE 0.9% 1000 ML 1,000 ML IV SCH ×4 (00:26→21:33)
[2020-03-13] MEDS: MORPHINE 2 MG/1 ML INJ IV PRN ×5 (01:34→19:52)
[2020-03-13 06:21] LABS: Basophils % (Auto) 0.3 % (0.0-1.8); Eosinophils % (Auto) 0.6 % (0.0-4.3); Hematocrit 32.8 % (35.5-45.6); Hemoglobin 11.1 gm/dl (11.8-15.2); Lymphocytes # (Auto) 1.1 K/mm3 (1.2-5.4); Lymphocytes % (Auto) 23.5 % (13.4-35.0); Mean Corpuscular HGB Conc 34 % (32-34); Mean Corpuscular Volume 101 fl (84-94); Monocytes # (Auto) 0.5 K/mm3 (0.0-0.8); Monocytes % (Auto) 10.7 % (0.0-7.3); Red Blood Count 3.24 M/mm3 (3.65-5.03); Red Cell Distribution Width 13.1 % (13.2-15.2)
[2020-03-13 06:26] LABS: Platelet Count 88 K/mm3 (140-440)
[2020-03-13 06:34] LABS: BUN/Creatinine Ratio 16; Blood Urea Nitrogen 16 mg/dL (9-20); Calcium 9.2 mg/dL (8.4-10.2); Hemolysis Index 1; INR 0.95 (0.87-1.13)
--- NOTE | 2020-03-13 07:47 | Progress Note ---
Assessment and Plan Assessment and plan: Alcoholic pancreatitis -Patient is on bowel rest, pain control -Lipase was elevated yesterday and we are going to check today Alcohol abuse -Patient is counseled about cessation of alcohol -We will monitor if you have any withdrawal and treat accordingly Thrombocytopenia -We will monitor -ImprovING DVT prophylaxis Disposition; continue inpatient care. History Interval history: Patient was seen and evaluated this morning Patient is complaining of abdominal pain 7 out of 10 intensity Hospitalist Physical - Physical exam Narrative exam: Not in cardiopulmonary distress. The patient appeared well nourished and normally developed. Vital signs as documented. Head exam is unremarkable. No scleral icterus . Neck is without jugular venous distension, thyromegaly, or carotid bruits. Lungs are clear to auscultation. Cardiac exam reveals regular rate and Rhythm. Abdominal exam reveals mild abdominal tenderness. Extremities are nonedematous and both femoral and pedal pulses are normal. BOX CAR CHECKER: Alert and oriented 3. No focal weakness. - Constitutional Vitals: Temp Pulse Resp BP Pulse Ox 98.5 F 81 16 131/81 98 03/13/20 04:53 03/13/20 04:53 03/13/20 04:53 03/13/20 04:53 03/13/20 04:53 General appearance: Present: no acute distress, well-nourished Results - Labs CBC & Chem 7: 03/13/20 04:48 03/13/20 04:48 Labs: Laboratory Last Values WBC 4.8 K/mm3 (4.5-11.0) 03/13/20 04:48 RBC 3.24 M/mm3 (3.65-5.03) L 03/13/20 04:48 Hgb 11.1 gm/dl (11.8-15.2) L 03/13/20 04:48 Hct 32.8 % (35.5-45.6) L D 03/13/20 04:48 MCV 101 fl (84-94) H 03/13/20 04:48 MCH 34 pg (28-32) H 03/13/20 04:48 MCHC 34 % (32-34) 03/13/20 04:48 RDW 13.1 % (13.2-15.2) L 03/13/20 04:48 Plt Count 88 K/mm3 (140-440) L 03/13/20 04:48 Lymph % (Auto) 23.5 % (13.4-35.0) 03/13/20 04:48 [place] % (Auto) 10.7 % (0.0-7.3) H 03/13/20 04:48 Eos % (Auto) 0.6 % (0.0-4.3) 03/13/20 04:48 Baso % (Auto) 0.3 % (0.0-1.8) 03/13/20 04:48 Lymph # 1.1 K/mm3 (1.2-5.4) L 03/13/20 04:48 [place] # 0.5 K/mm3 (0.0-0.8) 03/13/20 04:48 Eos # 0.0 K/mm3 (0.0-0.4) 03/13/20 04:48 Baso # 0.0 K/mm3 (0.0-0.1) 03/13/20 04:48 Seg Neutrophils % 64.9 % (40.0-70.0) 03/13/20 04:48 Seg Neutrophils # 3.1 K/mm3 (1.8-7.7) 03/13/20 04:48 PT 12.9 Sec. (12.2-14.9) 03/13/20 04:48 INR 0.95 (0.87-1.13) 03/13/20 04:48 Sodium 134 mmol/L (137-145) L 03/13/20 04:48 Potassium 4.2 mmol/L (3.6-5.0) 03/13/20 04:48 Chloride 93.7 mmol/L (98-107) L 03/13/20 04:48 Carbon Dioxide 18 mmol/L (22-30) L 03/13/20 04:48 Anion Gap 27 mmol/L 03/13/20 04:48 BUN 16 mg/dL (9-20) 03/13/20 04:48 Creatinine 1.0 mg/dL (0.8-1.3) 03/13/20 04:48 Estimated GFR > 60 ml/min 03/13/20 04:48 BUN/Creatinine Ratio 16 % 03/13/20 04:48 Glucose 102 mg/dL (75-100) H 03/13/20 04:48 Calcium 9.2 mg/dL (8.4-10.2) 03/13/20 04:48 Total Bilirubin 0.90 mg/dL (0.1-1.2) 03/12/20 17:30 AST 98 units/L (5-40) H 03/12/20 17:30 ALT 70 units/L (7-56) H 03/12/20 17:30 Alkaline Phosphatase 76 units/L (35-129) 03/12/20 17:30 Total Protein 8.7 g/dL (6.3-8.2) H 03/12/20 17:30 Albumin 5.3 g/dL (3.9-5) H 03/12/20 17:30 Albumin/Globulin Ratio 1.6 % 03/12/20 17:30 Lipase 994 units/L (13-60) H 03/12/20 17:30 Urine Color Yellow (Yellow) 03/12/20 Unknown Urine Turbidity Clear (Clear) 03/12/20 Unknown Urine pH 5.0 (5.0-7.0) 03/12/20 Unknown Ur Specific [place] 1.019 (1.003-1.030) 03/12/20 Unknown Urine Protein 100 mg/dl mg/dL (Negative) 03/12/20 Unknown Urine Glucose (UA) Neg mg/dL (Negative) 03/12/20 Unknown Urine Ketones 80 mg/dL (Negative) 03/12/20 Unknown Urine Blood Mod (Negative) 03/12/20 Unknown Urine Nitrite Neg (Negative) 03/12/20 Unknown Urine Bilirubin Neg (Negative) 03/12/20 Unknown Urine Urobilinogen 2.0 mg/dL (<2.0) 03/12/20 Unknown Ur Leukocyte Esterase Neg (Negative) 03/12/20 Unknown Urine WBC (Auto) 4.0 /HPF (0.0-6.0) 03/12/20 Unknown Urine RBC (Auto) 2.0 /HPF (0.0-6.0) 03/12/20 Unknown U Epithel Cells (Auto) 1.0 /HPF (0-13.0) 03/12/20 Unknown Hyaline Casts 1 /LPF 03/12/20 Unknown Urine Mucus 1+ /HPF 03/12/20 Unknown [place]/IV: Voiding Method Toilet IV Catheter Type [Left Wrist] INT / Saline Lock Active Medications - Current Medications Current Medications: Generic Name Dose Route Start Last Admin Trade Name Freq PRN Reason Stop Dose Admin Acetaminophen 650 mg 03/12/20 23:32 Tylenol PO Q4H PRN Pain MILD(1-3)/Fever >100.5/PATTERSON Enoxaparin Sodium 40 mg 03/13/20 22:00 Enoxaparin SUB-Q QDAY@2200 JADEN Sodium Chloride 1,000 mls @ 150 mls/hr 03/12/20 23:45 03/13/20 00:26 Nacl 0.9% 1000 Ml IV 150 mls/hr DIRECT JADEN Administration Morphine Sulfate 2 mg 03/12/20 23:32 03/13/20 05:31 Morphine IV 2 mg Q4H PRN Administration Pain, Moderate (4-6) Ondansetron HCl 4 mg 03/12/20 23:32 Zofran IV Q8H PRN Nausea And Vomiting Sodium Chloride 10 ml 03/13/20 10:00 Sodium Chloride Flush Syringe 10 Ml IV BID JADEN Sodium Chloride 10 ml 03/12/20 23:32 03/13/20 00:25 Sodium Chloride Flush Syringe 10 Ml IV 10 ml PRN PRN Administration LINE FLUSH
[2020-03-13] MEDS ORDERED: ENOXAPARIN 40 MG/0.4 ML INJ SUB-Q SCH (22:00)
[2020-03-14] MEDS: MORPHINE 2 MG/1 ML INJ IV PRN ×2 (00:51→05:11)
[2020-03-14] MEDS: SODIUM CHLORIDE 0.9% 1000 ML 1,000 ML IV SCH (05:11)
--- NOTE | 2020-03-14 09:49 | Discharge Summary ---
Providers - Providers Date of Admission: 03/13/20 09:49 Date of discharge: 03/14/20 Attending physician: SHAUNA HUDSON MD Primary care physician: REDEYE GUNNER Hospitalization Reason for admission: acute alcoholic pancreatitis Condition: Stable Pertinent studies: CT abdomen and pelvis Hospital course: 59-year-old male with known history of gout presenting to the emergency room today complaining of nausea vomiting and diarrhea for about 4 days. He has also been having some associated upper abdominal pain. He denies any fever or chills, no chest pain or shortness of breath, no headache or dizziness. He denies any travel and no sick contacts. He denies any contact with anyone with COVID-19. Patient admits that he drinks about 3 beers on a daily basis. He reports unintentional weight loss over the past few months. Work-up in the emergency room today reveals elevated lipase levels, CT of the abdomen and pelvis reveals acute pancreatitis. He has been started on IV fluid, Zofran and analgesic medication. Patient was admitted to the floor for the management of acute alcoholic pancreatitis, patient was n.p.o., was given IV fluids and pain control. Patient symptoms are getting better. Lipase level is trending down. Patient tolerated full liquid diet without any problem. Patient counseled extensively about cessation of alcohol. Patient discharged home in a stable condition. Advised to have follow-up with his primary care physician. Disposition: DC-01 TO HOME OR SELFCARE Time spent for discharge: 31 minutes - Discharge Diagnoses (1) Acute pancreatitis Status: Acute (2) Alcohol abuse Status: Chronic Core Measure Documentation - Palliative Care Palliative Care/ Comfort Measures: Not Applicable - Core Measures Any of the following diagnoses?: none Exam - Physical Exam Narrative exam: Not in cardiopulmonary distress. The patient appeared well nourished and normally developed. Vital signs as documented. Head exam is unremarkable. No scleral icterus . Neck is without jugular venous distension, thyromegaly, or carotid bruits. Lungs are clear to auscultation. Cardiac exam reveals regular rate and Rhythm. Abdominal exam reveals no abdominal tenderness. Extremities are nonedematous and both femoral and pedal pulses are normal. DIRECTOR OF CREATIVE SERVICES: Alert and oriented 3. No focal weakness. - Constitutional Vitals: Temp Pulse Resp BP Pulse Ox 98.4 F 67 16 128/83 99 03/14/20 04:23 03/14/20 04:23 03/14/20 04:23 03/14/20 04:23 03/14/20 04:23 Plan Activity: no restrictions Weight Bearing Status: Full Weight Bearing Diet: advance as tolerated Follow up with: PRIMARY CARE, [Primary Care Provider] - 3-5 Days Forms: Work/School Release Form Prescriptions: oxyCODONE /ACETAMINOPHEN [Percocet 5/325] 1 tab PO Q6HR PRN #12 tablet PRN Reason: Pain
[2020-03-14 10:57] LABS: Blood Urea Nitrogen 7 mg/dL (9-20); Calcium 8.9 mg/dL (8.4-10.2); Hemolysis Index 7
[2020-03-14 10:58] VITALS: BP 130/77
[2020-03-14 10:58] LABS: BUN/Creatinine Ratio 10
[2020-03-14] MEDS ORDERED: POTASSIUM CHLORIDE ER 20 MEQ TAB PO ONE (13:00)
== END 2020-03-14 11:30 | disposition home or self-care (01) | DRG 440 ==
LOC: ED 16:36 → 3A 22:56 → OBSVTOIN 03-13 09:49
PROVIDERS: ADMIT Internal Medicine Geriatric Medicine; ATTEND Internal Medicine
DX: K85.90 Acute pancreatitis without necrosis or infection, unspecified (principal); F17.210 Nicotine dependence, cigarettes, uncomplicated; M10.9 Gout, unspecified; F10.10 Alcohol abuse, uncomplicated; Y90.9 Presence of alcohol in blood, level not specified; K85.20 Alcohol induced acute pancreatitis without necrosis or infection; D69.6 Thrombocytopenia, unspecified; Z71.6 Tobacco abuse counseling
CPT/HCPCS: 36415; 71045; 74177; 80048; 80053; 81001; 83690; 85025; 85610; 96365; 96372; 96375; 99406; G0378; J1650; J2270; J2405; J7030; Q9967

== ENCOUNTER 2020-07-25 15:36 | Emergency (ER) | payer SELFPAY ==
[2020-07-25 15:43] VITALS: BP 125/72
--- NOTE | 2020-07-25 15:53 | Emergency Department Report ---
Blank Doc - Documentation Documentation: This is a 60-year-old male that presents with abdominal pain with nausea. 1- This initial assessment/diagnostic orders/clinical plan/ treatment(s) is/are subject to change based on pt's health status, clinical progression and re- assessment by fellow clinical providers in the ED. Further treatment and workup at subsequent clinical provers discretion. Patient/guardians urged not to elope from ED as their condition may be serious if not clinically assessed and managed. 2-labs 3-UA
[2020-07-25 16:02] LABS: Basophils % (Auto) 0.5 % (0.0-1.8); Eosinophils % (Auto) 0.7 % (0.0-4.3); Hematocrit 35.6 % (35.5-45.6); Hemoglobin 11.9 gm/dl (11.8-15.2); Lymphocytes # (Auto) 2.1 K/mm3 (1.2-5.4); Lymphocytes % (Auto) 50.2 % (13.4-35.0); Mean Corpuscular HGB Conc 34 % (32-34); Mean Corpuscular Volume 100 fl (84-94); Monocytes # (Auto) 0.3 K/mm3 (0.0-0.8); Monocytes % (Auto) 6.7 % (0.0-7.3); Red Blood Count 3.55 M/mm3 (3.65-5.03); Red Cell Distribution Width 13.6 % (13.2-15.2)
[2020-07-25 16:07] LABS: Platelet Count 86 K/mm3 (140-440)
[2020-07-25 16:23] LABS: Alanine Aminotransferase 78 units/L (7-56); Albumin 3.9 g/dL (3.9-5); BUN/Creatinine Ratio 19; Blood Urea Nitrogen 15 mg/dL (9-20); Calcium 8.6 mg/dL (8.4-10.2); Hemolysis Index 6
== END 2020-07-25 16:00 | disposition left against medical advice (07) ==
LOC: ED 15:36
DX: R10.9 Unspecified abdominal pain (principal); Z53.21 Procedure and treatment not carried out due to patient leaving prior to being seen by health care provider
CPT/HCPCS: 36415; 80053; 83690; 85025

== ENCOUNTER 2020-08-30 19:10 | Emergency (ER) | payer SELFPAY ==
--- NOTE | 2020-08-30 20:01 | Event Note ---
ED Screening Note ED Screening Note: Patient is a history of pancreatitis Presents for epigastric abdominal pain and nausea and vomiting that began a month ago but worsened in the last few days He is still a current everyday drinker, he drinks 3 (20 ounce beers) a day This initial assessment/diagnostic orders/clinical plan/treatment(s) is/are subject to change based on patients health status, clinical progression and re- assessment by fellow clinical providers in the ED. Further treatment and workup at subsequent clinical providers discretion. Patient/guardian urged not to elope from the ED as their condition may be serious if not clinically assessed and managed. Initial orders include: labs, ct
[2020-08-30 20:38] LABS: Basophils % (Auto) 0.5 % (0.0-1.8); Eosinophils % (Auto) 1.1 % (0.0-4.3); Hematocrit 27.4 % (35.5-45.6); Hemoglobin 9.3 gm/dl (11.8-15.2); Lymphocytes % (Auto) 47.8 % (13.4-35.0); Mean Corpuscular HGB Conc 34 % (32-34); Mean Corpuscular Volume 103 fl (84-94); Monocytes # (Auto) 0.5 K/mm3 (0.0-0.8); Monocytes % (Auto) 12.6 % (0.0-7.3); Platelet Count 115 K/mm3 (140-440); Red Blood Count 2.67 M/mm3 (3.65-5.03); Red Cell Distribution Width 15.1 % (13.2-15.2)
[2020-08-30 20:54] LABS: Alanine Aminotransferase 95 units/L (7-56); Albumin 3.2 g/dL (3.9-5); BUN/Creatinine Ratio 12; Blood Urea Nitrogen 12 mg/dL (9-20); Calcium 8.6 mg/dL (8.4-10.2); Hemolysis Index 4
--- NOTE | 2020-08-30 23:01 | Cat Scan Report ---
CT ABDOMEN AND PELVIS WITH CONTRAST INDICATION / CLINICAL INFORMATION: Patient complains of epigastric abd pain, N/V, Hx of Pancreatitis. TECHNIQUE: Axial CT images were obtained through the abdomen and pelvis after IV contrast. All CT sc ans at this location are performed using CT dose reduction for ALARA by means of automated exposure c ontrol. COMPARISON: CT dated 03/12/2020. FINDINGS: LOWER CHEST: Focal airspace opacity within the left lower lobe. Minimal tree-in-bud opacities are als o present in the partially imaged right middle lobe. LIVER: There is hepatomegaly with hepatic steatosis. Innumerable subcentimeter hypodense lesions are again seen throughout the liver, unchanged from prior study. GALLBLADDER/BILIARY TREE: Cholelithiasis. No CT evidence of cholecystitis. PANCREAS: No significant abnormality SPLEEN: Stable focal area of hyperenhancement within the spleen, likely reflects hemangioma. ADRENALS: No significant abnormality KIDNEYS / URETER: No significant abnormality URINARY BLADDER: No significant abnormality REPRODUCTIVE ORGANS: No significant abnormality STOMACH / SMALL BOWEL: There is inflammatory stranding and mural thickening about the second portion of the duodenum. 8 mm focal cystic structure noted along the medial aspect of the duodenum (series 5 image 50). No evidence of small bowel obstruction. COLON: The colon is decompressed, which limits evaluation. There is scattered colonic diverticulosis without CT evidence of diverticulitis. Appendix is normal. LYMPH NODES: No significant adenopathy. VASCULATURE: No significant abnormality. OTHER: No free air, free fluid, or focal fluid collection is identified. Left inguinal hernia contain s loop of nonobstructed distal colon. SKELETAL SYSTEM: Scattered degenerate changes of the spine. No acute process. IMPRESSION: 1. Inflammatory stranding and small suspected ulceration involving the second portion of the duodenum , compatible with peptic ulcer disease. No evidence of perforation at this time. 2. Mild tree-in-bud and airspace opacities within the lung bases, may reflect atypical infectious or inflammatory process. 3. Stable innumerable hypodense hepatic lesions. These are favored to be benign and may reflect bilia ry hamartomas. Continued follow-up is recommended. 4. Other findings as above. Signer Name: Gibran Graham MD Signed: 08/30/2020 10:57 PM Workstation Name: [id number]
[2020-08-30] MEDS ORDERED: ONDANSETRON 4 MG/2 ML INJ IV ONE (23:05)
[2020-08-30] MEDS ORDERED: FAMOTIDINE 20 MG/2 ML INJ IV ONE (23:05)
[2020-08-30] MEDS ORDERED: SODIUM CHLORIDE 0.9% 1000 ML 1,000 ML IV ONE (23:05)
--- NOTE | 2020-08-30 23:10 | Emergency Department Report ---
HPI <LEORA ELDRIDGE III - Last Filed: 08/31/20 05:58> - HPI HPI: This is a 60-year-old -[place] male presents to the emergency department with a complaint of abdominal pain, left groin pain, nausea and vomiting. Overall this has been going on for the past 1 to 2 months but worsened over the past week. The patient was here about 1 month ago and says he was diagnosed with pancreatitis at that time. He was told that he has to quit drinking alcohol but "I have not stopped yet", and the patient admits to daily beer drinking. The patient also says that he has a history of a left inguinal hernia and says "it keeps popping out." He has not taken anything for symptoms prior to presentation. He denies any fever, back pain, lower extremity swelling, chest pain, shortness of breath. He does admit to some diarrhea. No recent travel or sick contacts at home. He does not have a primary care physician. <EDU TREVINO - Last Filed: 09/02/20 06:01> - General Chief Complaint: Abdominal Pain Time Seen by Provider: 08/30/20 20:00 ED Past Medical Hx <LEORA ELDRIDGE III - Last Filed: 08/31/20 05:58> - Past Medical History Previous Medical History?: Yes Additional medical history: gout. hernia. PANCREATITIS - Surgical History Past Surgical History?: Yes Additional Surgical History: hernia repair - Social History Smoking Status: Current Every Day Smoker Substance Use Type: Alcohol <EDU TREVINO - Last Filed: 09/02/20 06:01> - Medications Home Medications: Home Medications Medication Instructions Recorded Confirmed Last Taken Type Cyclobenzaprine [Flexeril] 10 mg PO TID PRN #20 tablet 10/24/16 03/13/20 Unknown Rx Indomethacin 50 mg PO BID #10 capsule 02/23/17 03/13/20 Unknown Rx Naproxen [Naprosyn TAB] 500 mg PO BID PRN #14 tablet 03/28/17 03/13/20 Unknown Rx oxyCODONE /ACETAMINOPHEN [Percocet 1 tab PO Q6HR PRN #12 tablet 03/14/20 Unknown Rx 5/325] Omeprazole 40 mg PO QDAY #30 capsule. 08/31/20 Unknown Rx ED Review of Systems ROS: Stated complaint: ABD PAIN Other details as noted in HPI <LEORA ELDRIDGE III - Last Filed: 08/31/20 05:58> ROS: Stated complaint: ABD PAIN Other details as noted in HPI Comment: All other systems reviewed and negative Constitutional: denies: chills, fever Eyes: denies: eye pain, vision change ENT: denies: ear pain, throat pain Respiratory: denies: cough, shortness of breath Cardiovascular: denies: chest pain, palpitations Gastrointestinal: abdominal pain, nausea, vomiting Genitourinary: denies: dysuria, discharge, testicular pain Musculoskeletal: denies: back pain, arthralgia Skin: denies: rash, lesions Neurological: denies: headache, weakness <EDU TREVINO - Last Filed: 09/02/20 06:01> Physical Exam - Physical Exam Vital Signs: Vital Signs 08/30/20 08/31/20 08/31/20 19:59 00:18 00:30 Temperature 98.1 F Pulse Rate 86 79 73 Respiratory 18 20 Rate Blood Pressure 131/73 136/106 O2 Sat by Pulse 100 99 98 Oximetry 08/31/20 08/31/20 08/31/20 00:45 01:00 01:16 Temperature Pulse Rate 78 78 Respiratory 10 L 13 Rate Blood Pressure 131/83 131/83 127/78 O2 Sat by Pulse 100 100 100 Oximetry 08/31/20 08/31/20 08/31/20 01:30 01:46 02:00 Temperature Pulse Rate 76 72 78 Respiratory 22 17 19 Rate Blood Pressure 127/78 126/77 126/77 O2 Sat by Pulse 99 100 98 Oximetry 08/31/20 08/31/20 08/31/20 02:16 02:30 02:46 Temperature Pulse Rate 78 82 92 H Respiratory 15 16 20 Rate Blood Pressure 113/68 113/68 120/74 O2 Sat by Pulse 100 98 98 Oximetry 08/31/20 08/31/20 08/31/20 03:00 03:16 03:30 Temperature Pulse Rate 85 82 82 Respiratory 11 L 9 L 10 L Rate Blood Pressure 120/74 92/40 127/78 O2 Sat by Pulse 93 93 92 Oximetry 08/31/20 08/31/20 08/31/20 03:46 04:00 04:16 Temperature Pulse Rate 83 85 82 Respiratory 10 L 12 9 L Rate Blood Pressure 104/51 104/51 99/57 O2 Sat by Pulse 89 97 93 Oximetry 08/31/20 08/31/20 08/31/20 04:30 04:46 05:00 Temperature Pulse Rate 78 80 78 Respiratory 10 L 9 L 8 L Rate Blood Pressure 99/57 102/46 102/46 O2 Sat by Pulse 94 89 90 Oximetry 08/31/20 08/31/20 05:16 05:30 Temperature Pulse Rate 81 76 Respiratory 8 L 9 L Rate Blood Pressure 101/47 101/47 O2 Sat by Pulse 96 94 Oximetry <LEORA ELDRIDGE III K - Last Filed: 08/31/20 05:58> - Physical Exam Vital Signs: Vital Signs 08/30/20 19:59 Temperature 98.1 F Pulse Rate 86 Respiratory 18 Rate Blood Pressure 131/73 O2 Sat by Pulse 100 Oximetry Physical Exam: GENERAL: The patient is well-developed well-nourished. HENT: Normocephalic. Atraumatic. Patient has moist mucous membranes. EYES: Extraocular motions are intact. NECK: Supple. Trachea is midline. CHEST/LUNGS: Clear to auscultation. There is no respiratory distress noted. HEART/CARDIOVASCULAR: Regular. There is no tachycardia. There is no murmur. ABDOMEN: Abdomen is soft. Mild upper abdominal tenderness to palpation. No guarding. No peritoneal signs with heel strike. Patient has normal bowel sounds. There is no abdominal distention. SKIN: Skin is warm and dry. NEURO: The patient is awake, alert, and oriented. The patient is cooperative. The patient has no focal neurologic deficits. Normal speech. MUSCULOSKELETAL: There is no tenderness or deformity. There is no limitation range of motion. There is no evidence of acute injury. : There is a reducible left inguinal hernia. <EDU TREVINO S - Last Filed: 09/02/20 06:01> ED Course Vital Signs 08/30/20 08/31/20 08/31/20 19:59 00:18 00:30 Temperature 98.1 F Pulse Rate 86 79 73 Respiratory 18 20 Rate Blood Pressure 131/73 136/106 O2 Sat by Pulse 100 99 98 Oximetry 08/31/20 08/31/20 08/31/20 00:45 01:00 01:16 Temperature Pulse Rate 78 78 Respiratory 10 L 13 Rate Blood Pressure 131/83 131/83 127/78 O2 Sat by Pulse 100 100 100 Oximetry 08/31/20 08/31/20 08/31/20 01:30 01:46 02:00 Temperature Pulse Rate 76 72 78 Respiratory 22 17 19 Rate Blood Pressure 127/78 126/77 126/77 O2 Sat by Pulse 99 100 98 Oximetry 08/31/20 08/31/20 08/31/20 02:16 02:30 02:46 Temperature Pulse Rate 78 82 92 H Respiratory 15 16 20 Rate Blood Pressure 113/68 113/68 120/74 O2 Sat by Pulse 100 98 98 Oximetry 08/31/20 08/31/20 08/31/20 03:00 03:16 03:30 Temperature Pulse Rate 85 82 82 Respiratory 11 L 9 L 10 L Rate Blood Pressure 120/74 92/40 127/78 O2 Sat by Pulse 93 93 92 Oximetry 08/31/20 08/31/20 08/31/20 03:46 04:00 04:16 Temperature Pulse Rate 83 85 82 Respiratory 10 L 12 9 L Rate Blood Pressure 104/51 104/51 99/57 O2 Sat by Pulse 89 97 93 Oximetry 08/31/20 08/31/20 08/31/20 04:30 04:46 05:00 Temperature Pulse Rate 78 80 78 Respiratory 10 L 9 L 8 L Rate Blood Pressure 99/57 102/46 102/46 O2 Sat by Pulse 94 89 90 Oximetry 08/31/20 08/31/20 05:16 05:30 Temperature Pulse Rate 81 76 Respiratory 8 L 9 L Rate Blood Pressure 101/47 101/47 O2 Sat by Pulse 96 94 Oximetry - Reevaluation(s) Reevaluation #1: Patient is alert and oriented x3. Patient answering questions appropriately. Patient ambulatory in the ER. Patient is clinically sober at this time. Patient is stable to be discharged. We will activate the previous establish discharge. I discussed all results and clinical findings with patient. I discussed plan of care with patient. Patient agrees with plan of care. Patient is stable for discharge. Patient will be discharged home. Patient given discharge instructions. Patient voiced understanding of discharge instructions. 08/31/20 05:58 <LEORA ELDRIDGE III - Last Filed: 08/31/20 05:58> Vital Signs 08/30/20 19:59 Temperature 98.1 F Pulse Rate 86 Respiratory 18 Rate Blood Pressure 131/73 O2 Sat by Pulse 100 Oximetry <BELINDAEDU - Last Filed: 09/02/20 06:01> ED Medical Decision Making - Lab Data Result diagrams: 08/30/20 20:08 08/30/20 20:08 <LEORA ELDRIDGE III - Last Filed: 08/31/20 05:58> - Lab Data Result diagrams: 08/30/20 20:08 08/30/20 20:08 Lab Results 08/30/20 08/30/20 08/30/20 Range/Units 20:08 20:08 23:16 WBC 4.2 L (4.5-11.0) K/mm3 RBC 2.67 L (3.65-5.03) M/mm3 Hgb 9.3 L (11.8-15.2) gm/dl Hct 27.4 L (35.5-45.6) % MCV 103 H (84-94) fl MCH 35 H (28-32) pg MCHC 34 (32-34) % RDW 15.1 (13.2-15.2) % Plt Count 115 L (140-440) K/mm3 Lymph % (Auto) 47.8 H (13.4-35.0) % [place] % (Auto) 12.6 H (0.0-7.3) % Eos % (Auto) 1.1 (0.0-4.3) % Baso % (Auto) 0.5 (0.0-1.8) % Lymph # (Auto) 2.0 (1.2-5.4) K/mm3 [place] # (Auto) 0.5 (0.0-0.8) K/mm3 Eos # (Auto) 0.0 (0.0-0.4) K/mm3 Baso # (Auto) 0.0 (0.0-0.1) K/mm3 Seg Neutrophils % 38.0 L (40.0-70.0) % Seg Neutrophils # 1.6 L (1.8-7.7) K/mm3 Sodium 137 (137-145) mmol/L Potassium 3.6 (3.6-5.0) mmol/L Chloride 96.6 L (98-107) mmol/L Carbon Dioxide 28 (22-30) mmol/L Anion Gap 16 mmol/L BUN 12 (9-20) mg/dL Creatinine 1.0 (0.8-1.3) mg/dL Estimated GFR > 60 ml/min BUN/Creatinine Ratio 12 % Glucose 180 H (75-100) mg/dL Calcium 8.6 (8.4-10.2) mg/dL Total Bilirubin 0.60 (0.1-1.2) mg/dL AST 156 H (5-40) units/L ALT 95 H (7-56) units/L Alkaline Phosphatase 152 H (35-129) units/L Total Protein 5.9 L (6.3-8.2) g/dL Albumin 3.2 L (3.9-5) g/dL Albumin/Globulin Ratio 1.2 % Lipase 24 (13-60) units/L Plasma/Serum Alcohol 0.27 H (0-0.07) % - Radiology Data Radiology results: report reviewed CT ABDOMEN AND PELVIS WITH CONTRAST INDICATION / CLINICAL INFORMATION: Patient complains of epigastric abd pain, N/V, Hx of Pancreatitis. TECHNIQUE: Axial CT images were obtained through the abdomen and pelvis after IV contrast. All CT scans at this location are performed using CT dose reduction for ALARA by means of automated exposure control. COMPARISON: CT dated 03/12/2020. FINDINGS: LOWER CHEST: Focal airspace opacity within the left lower lobe. Minimal tree-in-bud opacities are also present in the partially imaged right middle lobe. LIVER: There is hepatomegaly with hepatic steatosis. Innumerable subcentimeter hypodense lesions are again seen throughout the liver, unchanged from prior stud y. GALLBLADDER/BILIARY TREE: Cholelithiasis. No CT evidence of cholecystitis. PANCREAS: No significant abnormality SPLEEN: Stable focal area of hyperenhancement within the spleen, likely reflects hemangioma. ADRENALS: No significant abnormality KIDNEYS / URETER: No significant abnormality URINARY BL ADDER: No significant abnormality REPRODUCTIVE ORGANS: No significant abnormality STOMACH / SMALL BOWEL: There is inflammatory stranding and mural thickening about the second portion of the duodenum. 8 mm focal cystic structure noted along the medial aspect of the duodenum (series 5 image 50). No evidence of small bowel obstruction. COLON: The colon is decompressed, which limits evaluation. There is scattered colonic diverticulosis without CT evidence of diverticulitis. Appendix is normal. LYMPH NODES: No significant adenopathy. VASCULATURE: No significant abnormality. OTHER: No free air, free fluid, or focal fluid collection is identified. Left inguinal hernia contains loop of nonobstructed distal colon. SKELETAL SYSTEM: Scattered degenerate changes of the spine. No acute process. IMPRESSION: 1. Inflammatory stranding and small suspected ulceration involving the second portion of the duodenum, compatible with peptic ulcer disease. No evidence of perforation at this time. 2. Mild tr ee-in-bud and airspace opacities within the lung bases, may reflect atypical infectious or inflammatory process. 3. Stable innumerable hypodense hepatic lesions. These are favored to be benign and may reflect biliary hamartomas. Continued follow-up is recommended. 4. Other findings as above. - Medical Decision Making This patient presents to the emergency department with a complaint of upper abdominal pain, left groin pain, diarrhea, and some occasional nausea with vom iting. The patient says that he has a history of pancreatitis and has been told in the past that he has to stop drinking but the patient is still drinking daily. His blood alcohol level came back at 0.27 that was drawn around 11 PM this evening. Patient has some anemia with hemoglobin of about 9, but this does not require any transfusion. The patient also has elevation in his LFTs consistent with his history of alcohol use/abuse. The patient does have a history of a hernia. He currently has a left direct inguinal hernia that is easily reducible. Patient has some reproducible abdominal epigastric tenderness to palpation. Otherwise, the abdomen is soft, nondistended and nontoxic in appearance. CT scan of the abdomen and pelvis with IV contrast shows some inflammatory changes and mural thickness to the duodenum consistent with peptic ulcer disease without any signs of perforation. Patient has cholelithiasis without cholecystitis. There are some areas of diverticulosis without diverticulitis. The patient has some cystic areas of the liver that radiology feels is most likely benign, but does require further outpatient evaluation. The left inguinal hernia is visible but there are no signs of strangulation or incarceration. Patient is seen resting comfortably multiple times. Despite his alcohol intoxication he is easily arousable and is alert and oriented. The patient has been given Pepcid, IV fluid resuscitation and a banana bag. A PPI will be added. The patient says that there is nobody who can come and take responsibility for him this evening. He will continue to receive IV fluid and will rest in the emergency department until morning, when he says that there is a family member who can come to get him. When discharge, the patient will be given outpatient referrals for primary care, gastroenterology and general surgery. He will be placed on a PPI. We have had discussions about cessation of alcohol consumption, dietary and lifestyle changes to make. This case will be signed out to my colleague, Dr. Muñiz, to follow the patient's alcohol level and make sure that he is either sober enough for discharge home, or that a family member or friend can, and take responsibility for him and get him home safely. <EDU TREVINO - Last Filed: 09/02/20 06:01> Critical care attestation.: If time is entered above; I have spent that time in minutes in the direct care of this critically ill patient, excluding procedure time. <LEORA ELDRIDGE III - Last Filed: 08/31/20 05:58> Critical Care Time: No Critical care attestation.: If time is entered above; I have spent that time in minutes in the direct care of this critically ill patient, excluding procedure time. <EDU TREVINO - Last Filed: 09/02/20 06:01> ED Disposition <LEORA ELDRIDGE III - Last Filed: 08/31/20 05:58> Is pt being admited?: No Time of Disposition: : <EDU TREVINO - Last Filed: 09/02/20 06:01> Clinical Impression: Alcohol abuse, Peptic ulcer disease Inguinal hernia Qualifiers: Obstruction and gangrene presence: without obstruction or gangrene Laterality: unilateral Recurrence: recurrent Qualified Code(s): K40.91 - Unilateral inguinal hernia, without obstruction or gangrene, recurrent Cholelithiasis Qualifiers: Cholelithiasis location: gallbladder Biliary obstruction: without biliary obstruction Disposition: TO HOME OR SELFCARE Condition: Stable Instructions: Alcohol Use Disorder, Cholelithiasis, Peptic Ulcer, Alcohol Abuse and Dependence Information, Adult, Alcohol Abuse and Nutrition, Inguinal Hernia, Adult Additional Instructions: Please follow-up with a primary care physician in the next few days. I have given you a referral for a local primary care physician and a local clinic. I have given you a referral for a local general surgeon, Dr. Salter, to follow- up regarding your left groin hernia, as well as your history of gallstones. I have given you a referral for [facility] to follow-up regarding your abdominal pain, elevated liver enzymes, and CT findings of peptic ulcer disease. Please avoid any further alcohol use/consumption. Please avoid NSAIDs such as ibuprofen, Aleve, naproxen, Advil. Return to the emergency department with any worsening of your symptoms, new or concerning symptoms not addressed during this current emergency department visit, or with any acute distress. Prescriptions: Omeprazole 40 mg PO QDAY #30 capsule.dr Referrals: EHSAN SALTER DO [Staff Physician] - 2-3 Days [facility] [Provider Group] - 2-3 Days EMMANUEL AVILEZ MD [Staff Physician] - 2-3 Days [facility] [Provider Group] - 2-3 Days Forms: Work/School Release Form(ED)
[2020-08-31] MEDS ORDERED: THIAMINE 100 MG, FOLIC ACID 1 MG, MULTIPLE VITAMIN INJ, ADULT 10 ML in SODIUM CHLORIDE ... IV ONE (00:05)
[2020-08-31] MEDS ORDERED: HYDROmorphone 1 MG/1 ML INJ ONE (02:30)
[2020-08-31] MEDS ORDERED: HYDROmorphone 1 MG/1 ML INJ IV ONE (02:37)
[2020-08-31 05:37] VITALS: BP 101/47
== END 2020-08-31 06:45 | disposition home or self-care (01) ==
LOC: ED 19:10
DX: K40.90 Unilateral inguinal hernia, without obstruction or gangrene, not specified as recurrent (principal); K80.20 Calculus of gallbladder without cholecystitis without obstruction; F17.200 Nicotine dependence, unspecified, uncomplicated; Z98.890 Other specified postprocedural states; Z79.899 Other long term (current) drug therapy
CPT/HCPCS: 36415; 74177; 80053; 83690; 85025; 96365; 96366; 96375; 99284; J1170; J2405; J3411; J7030; Q9967; 80320; G0480

== ENCOUNTER 2020-09-02 12:32 | Emergency (ER) | payer OTHER ==
--- NOTE | 2020-09-02 12:52 | Emergency Department Report ---
Blank Doc - Documentation Documentation: 60-year-old male that presents with worsening left inguinal pain with abdominal pain. Exam: Left inguinal hernia with unable to reduce. 1- This initial assessment/diagnostic orders/clinical plan/ treatment(s) is/are subject to change based on pt's health status, clinical progression and re- assessment by fellow clinical providers in the ED. Further treatment and workup at subsequent clinical provers discretion. Patient/guardians urged not to elope from ED as their condition may be serious if not clinically assessed and managed. 2-labs
[2020-09-02 13:19] VITALS: BP 132/79
[2020-09-02] MEDS ORDERED: LIDOCAINE VISCOUS 2% 15 ML ORAL LIQD PO ONE (13:31)
[2020-09-02] MEDS ORDERED: ALUM-MAG HYDROXIDE-SIMETHICONE 200-200-20MG/5ML ORAL LIQD 30 ML PO ONE (13:31)
--- NOTE | 2020-09-02 13:36 | Emergency Department Report ---
ED Abdominal Pain HPI - General Chief Complaint: Pain General Stated Complaint: ABD PAIN/SEEN HERE TH FOR SAME Time Seen by Provider: 09/02/20 12:47 Source: patient Mode of arrival: Ambulatory Limitations: No Limitations - History of Present Illness Initial Comments: 60-year-old male presents ED with complaint of left inguinal hernia pain. Patient states hernia has been present for several years. Patient reports swelling in the area since this morning. Patient was seen 3 days ago for abdominal pain. Patient has history of alcohol abuse and pancreatitis. Work-up from 3 days, which included CT scan, showed peptic ulcer disease. Patient advised to follow-up on outpatient basis. Patient also reporting an itchy rash on his back. He denies sleeping in any new environments, denies use of any new detergents. MD Complaint: abdominal pain -: This morning Location: LLQ Radiation: none Migration to: no migration Severity: moderate Severity scale (0 -10): 9 Quality: aching Consistency: intermittent Improves With: nothing Worsens With: nothing Associated Symptoms: denies: nausea, vomiting, diarrhea, fever - Related Data Previous Rx's Medication Instructions Recorded Last Taken Type Cyclobenzaprine [Flexeril] 10 mg PO TID PRN #20 tablet 10/24/16 Unknown Rx Indomethacin 50 mg PO BID #10 capsule 02/23/17 Unknown Rx Naproxen [Naprosyn TAB] 500 mg PO BID PRN #14 tablet 03/28/17 Unknown Rx oxyCODONE /ACETAMINOPHEN [Percocet 1 tab PO Q6HR PRN #12 tablet 03/14/20 Unknown Rx 5/325] Omeprazole 40 mg PO QDAY #30 capsule. 08/31/20 Unknown Rx Permethrin 5% [Acticin 5% CREAM] 1 applicatio TP ONCE #1 tube 09/02/20 Unknown Rx Allergies Allergy/AdvReac Type Severity Reaction Status Date / Time No Known Allergies Allergy Verified 07/25/20 15:39 ED Review of Systems ROS: Stated complaint: ABD PAIN/SEEN HERE [facility] FOR SAME Other details as noted in HPI Comment: All other systems reviewed and negative Constitutional: denies: fever Gastrointestinal: abdominal pain. denies: nausea, vomiting, diarrhea ED Past Medical Hx - Past Medical History Previous Medical History?: Yes Additional medical history: gout. hernia. PANCREATITIS, Left inquinal hernia - Surgical History Past Surgical History?: Yes Additional Surgical History: right inquinal hernia repair - Social History Smoking Status: Current Every Day Smoker Substance Use Type: Alcohol - Medications Home Medications: Home Medications Medication Instructions Recorded Confirmed Last Taken Type Cyclobenzaprine [Flexeril] 10 mg PO TID PRN #20 tablet 10/24/16 03/13/20 Unknown Rx Indomethacin 50 mg PO BID #10 capsule 02/23/17 03/13/20 Unknown Rx Naproxen [Naprosyn TAB] 500 mg PO BID PRN #14 tablet 03/28/17 03/13/20 Unknown Rx oxyCODONE /ACETAMINOPHEN [Percocet 1 tab PO Q6HR PRN #12 tablet 03/14/20 Unknown Rx 5/325] Omeprazole 40 mg PO QDAY #30 capsule. 08/31/20 Unknown Rx Permethrin 5% [Acticin 5% CREAM] 1 applicatio TP ONCE #1 tube 09/02/20 Unknown Rx ED Physical Exam - General Limitations: No Limitations General appearance: alert, in no apparent distress - Head Head exam: Present: atraumatic, normocephalic - Eye Eye exam: Present: normal appearance, EOMI - ENT ENT exam: Present: mucous membranes moist - Neck Neck exam: Present: normal inspection - Respiratory Respiratory exam: Present: normal lung sounds bilaterally. Absent: respiratory distress - Cardiovascular Cardiovascular Exam: Present: regular rate, normal rhythm - GI/Abdominal GI/Abdominal exam: Present: soft, hernia (Left inguinal hernia, easily reducible). Absent: distended, tenderness - Extremities Exam Extremities exam: Present: normal inspection - Neurological Exam Neurological exam: Present: alert, oriented X3 - Psychiatric Psychiatric exam: Present: normal affect, normal mood - Skin Skin exam: Present: rash (Located diffusely across the back erythematous, papular, excoriated) ED Course Vital Signs 09/02/20 09/02/20 09/02/20 12:41 13:18 13:19 Temperature 98.5 F 98.5 F Pulse Rate 96 H 84 Respiratory 20 15 15 Rate Blood Pressure 123/73 Blood Pressure 132/79 [Right] O2 Sat by Pulse 98 99 Oximetry ED Medical Decision Making - Medical Decision Making Patient with reducible inguinal hernia on exam. Abdomen is soft, nontender. Vital signs are normal. Patient encouraged to follow-up with general surgery. Patient also advised to decrease his alcohol intake secondary to his peptic ulcer disease and pancreatitis. Prescription given for rash. Return precautions given. Critical care attestation.: If time is entered above; I have spent that time in minutes in the direct care of this critically ill patient, excluding procedure time. ED Disposition Clinical Impression: Inguinal hernia, Rash Disposition: DC-01 TO HOME OR SELFCARE Is pt being admited?: No Condition: Stable Instructions: Inguinal Hernia, Adult, Tlac-yg-Mfbi, Peptic Ulcer, Jxiq-vb-Lawa, Scabies, Adult, Rash, Adult, Ukzr-un-Lgzz Prescriptions: Permethrin 5% [Acticin 5% CREAM] 1 applicatio TP ONCE #1 tube Referrals: BILLIE HARDWICK MD [Staff Physician] - 3-5 Days [facility] [Provider Group] - 3-5 Days Time of Disposition: 13:36
== END 2020-09-02 14:14 | disposition home or self-care (01) ==
LOC: ED 12:32
DX: K40.90 Unilateral inguinal hernia, without obstruction or gangrene, not specified as recurrent (principal); R21 Rash and other nonspecific skin eruption; F17.200 Nicotine dependence, unspecified, uncomplicated; M10.9 Gout, unspecified; Z79.899 Other long term (current) drug therapy; Z98.890 Other specified postprocedural states
CPT/HCPCS: 99282

== ENCOUNTER 2021-10-14 13:51 | Emergency (ER) | payer SELFPAY ==
[2021-10-14 16:24] VITALS: BP 119/71
--- NOTE | 2021-10-14 22:51 | Cat Scan Report ---
CT head without contrast INDICATION : Headache TECHNIQUE: Axial imaging performed from the skull apex through the skull base without the use of con trast. All CT examinations performed at this facility utilize dose modulation, iterative reconstruct ion or weight-based dosing, when appropriate, to reduce radiation dose to as low as reasonably achiev able. COMPARISON: None FINDINGS: No acute intracranial hemorrhage or parenchymal abnormality. Ventricles are normal in si ze and appear symmetric. Soft tissues including the orbits appear normal. No acute osseous abnorm ality. Sinuses and mastoid air cells are clear. IMPRESSION: No acute abnormality. Signer Name: Brady Rojo MD Signed: 10/14/2021 10:47 PM Workstation Name: [email or web address]
--- NOTE | 2021-10-14 22:59 | Emergency Department Report ---
ED General Adult HPI - General Chief complaint: Headache Stated complaint: HEADACHE/MUSCLE SPASMS Source: patient Mode of arrival: Ambulatory Limitations: No Limitations - History of Present Illness Initial comments: Patient is a 61-year-old -[place] male with no past medical history presents to the ED with complaint of acute onset persistent headache, with neck pain as well as bilateral upper extremity tingling sensation for the last 1 month. Patient states that the tingling sensation radiates from his neck bilaterally, and that it is intermittent and occasionally wakes him up from sleep. Patient states the headache is constant and persistent despite taking opun-btc-phyfbea medications. Patient denies dizziness, syncope, chest pain, shortness of breath, fever, chills, traumatic injury, heavy lifting, nausea and vomiting, change in vision, back pain or cough. MD Complaint: HEADACHE; Bilateral upper extremity tingling sensations -: Sudden, month(s) (1) Location: head, neck, upper extremity (Bilateral upper extremity tingling sensation) Radiation: extremity (Bilateral and shoulder pain with tingling sensation) Severity scale (0 -10): 7 Quality: aching, sharp Consistency: intermittent Improves with: none Worsens with: movement Associated Symptoms: denies other symptoms, headaches. denies: confusion, chest pain, cough, diaphoresis, fever/chills, loss of appetite, malaise, rash, seizure, shortness of breath, syncope, weakness Treatments Prior to Arrival: none - Related Data Previous Rx's Medication Instructions Recorded Last Taken Type Cyclobenzaprine [Flexeril] 10 mg PO TID PRN #20 tablet 10/24/16 Unknown Rx Indomethacin 50 mg PO BID #10 capsule 02/23/17 Unknown Rx Naproxen [Naprosyn TAB] 500 mg PO BID PRN #14 tablet 03/28/17 Unknown Rx oxyCODONE /ACETAMINOPHEN [Percocet 1 tab PO Q6HR PRN #12 tablet 03/14/20 Unknown Rx 5/325] Omeprazole 40 mg PO QDAY #30 capsule. 08/31/20 Unknown Rx Permethrin 5% [Acticin 5% CREAM] 1 applicatio TP ONCE #1 tube 09/02/20 Unknown Rx Gabapentin 300 mg PO BID #60 cap 10/14/21 Unknown Rx Naproxen 500 mg PO Q12H PRN #30 tab 10/14/21 Unknown Rx predniSONE [Deltasone] 40 mg PO QDAY #10 tab 10/14/21 Unknown Rx Allergies Allergy/AdvReac Type Severity Reaction Status Date / Time No Known Allergies Allergy Verified 07/25/20 15:39 ED Review of Systems ROS: Stated complaint: HEADACHE/MUSCLE SPASMS Other details as noted in HPI Constitutional: denies: chills, fever Eyes: denies: eye pain, eye discharge, vision change ENT: denies: ear pain, throat pain Respiratory: denies: cough, shortness of breath, wheezing Cardiovascular: denies: chest pain, palpitations Endocrine: no symptoms reported Gastrointestinal: denies: abdominal pain, nausea, diarrhea Genitourinary: denies: urgency, dysuria Musculoskeletal: arthralgia (Bilateral upper extremity tingling sensation), other (Mild neck pain). denies: back pain, joint swelling Skin: denies: rash, lesions Neurological: headache. denies: weakness, paresthesias Psychiatric: denies: anxiety, depression Hematological/Lymphatic: denies: easy bleeding, easy bruising ED Past Medical Hx - Past Medical History Additional medical history: gout. hernia. PANCREATITIS, Left inquinal hernia - Surgical History Additional Surgical History: right inquinal hernia repair - Social History Smoking Status: Current Every Day Smoker Substance Use Type: Alcohol - Medications Home Medications: Home Medications Medication Instructions Recorded Confirmed Last Taken Type Cyclobenzaprine [Flexeril] 10 mg PO TID PRN #20 tablet 10/24/16 03/13/20 Unknown Rx Indomethacin 50 mg PO BID #10 capsule 02/23/17 03/13/20 Unknown Rx Naproxen [Naprosyn TAB] 500 mg PO BID PRN #14 tablet 03/28/17 03/13/20 Unknown Rx oxyCODONE /ACETAMINOPHEN [Percocet 1 tab PO Q6HR PRN #12 tablet 03/14/20 Unknown Rx 5/325] Omeprazole 40 mg PO QDAY #30 capsule. 08/31/20 Unknown Rx Permethrin 5% [Acticin 5% CREAM] 1 applicatio TP ONCE #1 tube 09/02/20 Unknown Rx Gabapentin 300 mg PO BID #60 cap 10/14/21 Unknown Rx Naproxen 500 mg PO Q12H PRN #30 tab 10/14/21 Unknown Rx predniSONE [Deltasone] 40 mg PO QDAY #10 tab 10/14/21 Unknown Rx ED Physical Exam - General Limitations: No Limitations General appearance: alert, in no apparent distress - Head Head exam: Present: atraumatic, normocephalic, normal inspection - Eye Eye exam: Present: normal appearance, PERRL, EOMI Pupils: Present: normal accommodation - ENT ENT exam: Present: normal exam, normal orophraynx, mucous membranes moist, TM's normal bilaterally, normal external ear exam - Neck Neck exam: Present: normal inspection, full ROM. Absent: tenderness - Respiratory Respiratory exam: Present: normal lung sounds bilaterally. Absent: respiratory distress, wheezes, rales, stridor, chest wall tenderness, accessory muscle use, decreased breath sounds, prolonged expiratory - Cardiovascular Cardiovascular Exam: Present: regular rate, normal rhythm, normal heart sounds. Absent: systolic murmur, diastolic murmur, rubs, gallop - GI/Abdominal GI/Abdominal exam: Present: soft, normal bowel sounds. Absent: tenderness, guarding, rebound, hyperactive bowel sounds - Extremities Exam Extremities exam: Present: normal inspection, full ROM, normal capillary refill. Absent: tenderness, pedal edema, joint swelling, calf tenderness - Back Exam Back exam: Present: normal inspection, full ROM. Absent: tenderness, CVA tenderness (R), CVA tenderness (L), muscle spasm, paraspinal tenderness, vertebral tenderness - Neurological Exam Neurological exam: Present: alert, oriented X3, CN II-XII intact, normal gait, reflexes normal - Psychiatric Psychiatric exam: Present: normal affect, normal mood - Skin Skin exam: Present: warm, dry, intact, normal color. Absent: rash ED Course Vital Signs 10/14/21 16:20 Temperature 97.8 F Pulse Rate 79 Respiratory 18 Rate Blood Pressure 119/71 [Right] O2 Sat by Pulse 98 Oximetry ED Medical Decision Making - Radiology Data Radiology results: report reviewed, image reviewed [facility] [address] [place] [address] Cat Scan Report Signed Patient: DEVORA SINGH JR MR#: [id number] 49 : 1960 Acct:[id number] Age/Sex: 61 / M ADM Date: 10/14/21 Loc: ED Attending Dr: Ordering Physician: GLORIA GRAYSON Date of Service: 10/14/21 Procedure(s): CT head/brain wo con Accession Number(s): [id number] cc: GLORIA GRAYSON CT head without contrast INDICATION : Headache TECHNIQUE: Axial imaging performed from the skull apex through the skull base without the use of contrast. All CT examinations performed at this facility utilize dose modulation, iterative reconstruction or weight-based dosing, when appropriate, to reduce radiation dose to as low as reasonably achievable. COMPARISON: None FINDINGS: No acute intracranial hemorrhage or parenchymal abnormality. Ventricles are normal in size and appear symmetric. Soft tissues including the orbits appear normal. No acute osseous a bnormality. Sinuses and mastoid air cells are clear. IMPRESSION: No acute abnormality. Signer Name: Brady Rojo MD Signed: 10/14/2021 10:47 PM Workstation Name: [id number] Transcribed By: BC Dictated By: Brady Rojo MD Electronically Authenticated By: Brady Rojo MD Signed Date/Time: 10/14/212246 DD/ 44 TD/TT: - Medical Decision Making This is a 61-year-old -[place] male with no past medical history presents to the ED with complaint of acute onset persistent headache, with neck pain as well as bilateral upper extremity tingling sensation for the last 1 month. Patient states that the tingling sensation radiates from his neck bilaterally, and that it is intermittent and occasionally wakes him up from sleep. Patient states the headache is constant and persistent despite taking ydcu-fga-[id number] medications. In the ED, patient is alert and oriented x3 and is not in any distress. Patient was treated for pain in the ED. On reevaluation, patient's pain is well controlled medication. Head CT scan without contrast showed no acute intracranial abnormalities or hemorrhage. Patient was discharged home on medications and advised to follow-up with his primary care physician in 7 to 10 days for reevaluation or return to the ED immediately if symptoms get worse. - Differential Diagnosis Cervical radiculopathy; tension headache; muscle strain; muscle spasm Critical care attestation.: If time is entered above; I have spent that time in minutes in the direct care of this critically ill patient, excluding procedure time. ED Disposition Clinical Impression: Cervical radiculopathy Tension type headache Qualifiers: Headache chronicity pattern: acute headache Intractability: not intractable Qualified Code(s): G44.209 - Tension-type headache, unspecified, not intractable Disposition: 01 HOME / SELF CARE / HOMELESS Is pt being admited?: No Does the pt Need Aspirin: No Condition: Stable Instructions: Tension Headache, Adult, Cigx-kn-Xuwt, Cervical Radiculopathy, Ea sy-to-Read Additional Instructions: The head CT scan without contrast showed no acute intracranial abnormalities or hemorrhage. Therefore take medication with food, drink plenty of fluids and follow-up with your primary care physician in 7 to 10 days for reevaluation. Return to the ED immediately if symptoms get worse Prescriptions: predniSONE [Deltasone] 40 mg PO QDAY #10 tab Gabapentin 300 mg PO BID #60 cap Naproxen 500 mg PO Q12H PRN #30 tab PRN Reason: Pain , Severe (7-10) Referrals: [facility] [Provider Group] - 7-10 days Forms: Work/School Release Form(ED) Time of Disposition: 23:01 Print Language: PERSIAN
== END 2021-10-15 00:02 | disposition home or self-care (01) ==
LOC: ED 13:51
DX: G44.209 Tension-type headache, unspecified, not intractable (principal); M54.12 Radiculopathy, cervical region; F17.200 Nicotine dependence, unspecified, uncomplicated; Z72.89 Other problems related to lifestyle; Z79.899 Other long term (current) drug therapy
CPT/HCPCS: 70450; 99283